=== PATIENT | male | born 1955 | race Caucasian/White ===

== ENCOUNTER 2019-11-28 17:34 | Inpatient (IN) | payer OTHER ==
[2019-11-28] VITALS (15 sets, daily range): BP systolic 87–175; BP diastolic 63–138
[~2019-11-28] VITALS: Ht 162.6 cm; Wt 62.6 kg
[2019-11-28 17:55] LABS: ABSOLUTE NEUTROPHILS 13.8 thou/uL (1.4-8.2); BASOPHILS 0.7 % (0.0-2.0); EOSINOPHILS 0.1 % (0.0-3.0); HEMATOCRIT 48.8 % (42.0-52.0); HEMOGLOBIN 16.4 gm/dL (14.0-18.0); LYMPHOCYTES 15.3 % (24.0-44.0); MCH 30.4 pg (26.0-34.0); MCHC 33.7 g/dL (28.0-37.0); MCV 90.3 fL (80.0-100.0); MONOCYTES 2.8 % (1.0-8.0); PLATELET COUNT 278 thou/uL (150-400); POLYS 81.1 % (36.0-66.0); RDW 13.7 % (10.5-14.5)
[2019-11-28 18:05] LABS: CALCIUM 8.4 mg/dL (8.5-10.1); CREATININE 1.2 mg/dL (0.7-1.3); POTASSIUM 4.3 mmol/L (3.5-5.1)
[2019-11-28 18:14] LABS: BE(vivo) -8.9 mmol/L (-2 to +3); HCO3 15.7 mmol/L (22.0-26.0); PCO2 31.6 mmHg (35.0-45.0); PO2 78.8 mmHg (80.0-100.0); pH 7.313 (7.360-7.450); sO2 94.8 % (92.0-98.0)
[2019-11-28 18:16] LABS: ALBUMIN 3.7 g/dL (3.4-5.0); TOTAL BILIRUBIN 1.3 mg/dL (0.2-1.0); TOTAL PROTEIN 7.2 g/dL (6.4-8.2)
[2019-11-28 18:20] LABS: TROPONIN-I 5.73 ng/mL (<0.06)
[2019-11-28 18:28] LABS: APTT 21.4 Seconds (24.5-32.8); INR 1.1; PROTIME 11.3 Seconds (9.3-11.4)
[2019-11-28 19:19] LABS: ALBUMIN 3.7 g/dL (3.4-5.0); TOTAL PROTEIN 7.2 g/dL (6.4-8.2)
[2019-11-28 19:26] LABS: URINE BILIRUBIN NEGATIVE (Negative); URINE BLOOD NEGATIVE (Negative); URINE CLARITY CLEAR; URINE COLOR YELLOW; URINE GLUCOSE-RANDOM* NEGATIVE (Negative); URINE KETONES NEGATIVE (Negative); URINE LEUKOCYTES-REFLEX NEGATIVE (Negative); URINE NITRITE-REFLEX NEGATIVE (Negative); URINE PROTEIN (DIPSTICK) NEGATIVE (Negative); URINE SPECIFIC GRAVITY 1.025 (1.005-1.035); URINE UROBILINOGEN 0.2 E.U./dl (0.2-1.0)
[2019-11-28 19:42] LABS: TSH 1.871 uIU/mL (0.358-3.740)
[2019-11-28 20:52] LABS: CHOLESTEROL 247 mg/dL (<200); HDL CHOLESTEROL 43 mg/dL (>40); LDL CHOLESTEROL 179 mg/dL (<100); TC:HDL 5.7 Ratio (Not establshd); TRIGLYCERIDE 128 mg/dL (<150); VLDL 26 mg/dL (<40)
--- NOTE | 2019-11-28 20:55 | NUR ---
PT ARRIVED TO ICU FROM [facility]IM[facility] NURSERY WORKER INTUBATED AND SEDATED WITH PROPOFOL GTT. PT WAS ASSESSED PER ICU PROTOCOL. ATTACHED TO ICU MONITOR. TWO RN'S VERIFIED RIGHT GROIN SITE WITH MYNX CLOSURE WAS WITHOUT HEMATOMA. DRESSING C/D/I. SARA BENNETT CALLED AND UPDATED. DR. GAUTHIER CALLED WITH PULMONARY CONSULT. CXR ORDERED TO VERIFY ETT PLACEMENT. RADIOLOGY RECOMMENDS PULLING ETT BACK 1-[address] GAUTHIER NOTIFIED OF XRAY READINGS. PER DR. GAUTHIER OKAT TO PULL BACK ETT 1-2CM. RT EMMA NOTIFIED. RT PULLED BACK ETT FROM 27CM AT THE LIPS TO 25CM.
[2019-11-28 20:58] LABS: SERUM ASSESSMENT Clear
--- NOTE | 2019-11-28 21:10 | CATHLAB ---
[facility] [place] [address] [place] [address] INVASIVE PROCEDURE REPORT Name: MARY VIVAS Room #: 240-P ADM IN M.R.#: [id number] Admission: 11/28/19 Attend Phys: Kavin Colmenares MD Discharge: Date of : 55 Report #: [id number] THIS REPORT FOR: cc: FAM - No family physician/PCP FAM - No family physician/PCP Callum Velez MD [facility] ~ APPROVED REPORT Study performed: 11/28/2019 18:53:55 Patient Details Patient Status: ED Room #: The patient is a 63 year-old male Event Personnel Callum Velez Cherry Pitter, Radha Swan RN, Tory Damon RTR, PANAMA HAT SMEARER Monitor, Yadiel Jones RTR Scrub Procedures Performed Art Access - R femoral artery* Left Heart Cath w/or w/o Coronaries [id number] [facility] GENA Revasc AMI Total/Sub Single RCA C[address] w/wo Plasty Single CIRC [id number] Hemostasis w/ Mynx Indication Chest pain Procedure Narrative The patient was brought emergently to the Cardiac Catheterization Laboratory and was prepped and draped in a sterile manner. The Right Groin^ was infiltrated with 1% Lidocaine subcutaneous anesthesia. A PINNACLE 6FR Sheath #[id number] sheath was inserted into the RFA^. Coronary angiography was performed using coronary diagnostic catheters. The right coronary system was accessed and visualized with a JR4 catheter. The left coronary system was accessed and visualized with a JL4 catheter. The left ventricle was accessed and visualized with a angled pigtail catheter. Left ventricular/Aortic Valve gradient assessed via catheter pullback. Left ventriculogram was performed in 30 degree projection. Closure device was deployed with a 6 Fr MYNXGRIP 6/7F #[id number]. The patient tolerated the procedure well and there were no complications associated with the procedure. There was no hematoma. There was delay in the procedure due to requirement for intubation in the emergency department. When he arrived in the [facility] [address] [place] [address] INVASIVE PROCEDURE REPORT Name: MARY VIVAS Room #: 240-P [facility] IN .R.#: [id number] Admission: 11/28/19 Attend Phys: Kavin Colmenares, Discharge: Date of : 55 Report #: [id number] Dial Polisher there was a leak in the ET tube balloon necessitating exchanged out of the endotracheal tube. Intraoperative Conscious Sedation Sedation start time: 20:29 Case end Time: 20:45 Fentanyl 100 mcg Versed 1 mg Fluoro Time: 9.59 minutes Dose: DAP 09434.70 cGycm2 1561 mGy Contrast Type and Amount: Visipaque 295 ml Coronary Angiography The patient's coronary anatomy is right dominant. Diagnostic Cath Left Main Normal left main LAD The LAD appeared to be chronically occluded at or near its origin Circumflex The circumflex was comprised of a small proximal first marginal branch and much larger second marginal branch The proximal circumflex exhibited an 80% stenosis after the origin of OM1. OM1 Small OM1 with mild plaquing OM2 Minimal distal plaquing and a large trifurcating OM1 Right Coronary The right coronary was dominant with a critical 99% distal stenosis with HERMILO I flow R PDA Moderately large posterior descending with mild plaquing RPLV Large posterior lateral branch with mild plaquing Left Ventriculography The left ventricle is moderately dilated in size with abnormal contractility. The left ventricular ejection fraction is estimated to be 20-25%. Left ventricular wall motion abnormalities are present. There is 2+ mitral insufficiency. Severe global hypokinesis. Anterior wall and apex were severely dysfunctional. The inferior base was akinetic Hemodynamics The aortic pressure is 135/64 mmHg with a mean of 91 mmHg. The left ventricular pressure is 118/22 mmHg with a mean of mmHg. The left ventricular end diastolic pressure is 41 mmHg. PCI Technique Lesion Anticoagulation was achieved with Heparin, Integrilin. Patient was [facility] [address] [place] [address] INVASIVE PROCEDURE REPORT Name: MARY VIVAS Room #: 240-P ADM IN M.R.#: [id number] Admission: 11/28/19 Attend Phys: Kavin Colmenares, Discharge: Date of : 55 Report #: [id number] preloaded with Plavix. Percutaneous coronary intervention was performed on the mistal right coronary artery. The lesion stenosis prior to intervention was 99% with HERMILO 1 flow. A VISTA 6FR JR 4 #[id number] Guide Catheter was used to engage the ostium. A Luge Wire .014 x 182CM #[id number] Interventional Guidewire was used to cross the lesion. BALLOON DILATION A Balloon catheter Euphora RX 3.0 x 12 #[id number] was inserted and inflated up to 8.00atm for 18seconds. Additional Inflation: 8.00atm for 16seconds. STENT DEPLOYMENT A drug-eluting stent RESOLUTE VICK RX 4.0 X 22 #[id number] was inserted and inflated up to 16.00atm for 20seconds. POST STENT DEPLOYMENT BALLOON DILATION A Balloon catheter TREK NC RX 4.0 X 12 #[id number] was inserted and inflated up to 16.00atm for 15seconds. Additional Inflation: 18.00atm for 18seconds. Final angiography reveals 0 % stenosis with HERMILO 3 flow. PCI Technique Lesion 2 Percutaneous Coronary Intervention was performed on the proximal circumflex artery segment. The lesion stenosis prior to intervention was 85% with HERMILO 3 flow. A LAUNCHER 6FR JL4 #[id number] Guide Catheter was used to engage the ostium. A Luge Wire .014 x 182CM #[id number] Interventional Guidewire was used to cross the lesion. Balloon Dilation A Balloon catheter Euphora RX 3.0 x 12 #[id number] was inserted and inflated up to 8.00atm for 19seconds. Stent Deployment A drug-eluting stent RESOLUTE VICK RX 3.0 X 18 #[id number] was inserted and inflated up to 12.00atm for 25seconds. Post Stent Deployment Balloon Dilation A Balloon catheter Euphora NC RX 3.0 x 12 #[id number] was inserted and inflated up to 20.00atm for 22seconds. Additional Inflation: 20.00atm for 24seconds. Final angiography reveals 0 % stenosis with HERMILO 3 flow. [facility] [address] [place] [address] INVASIVE PROCEDURE REPORT Name: MARY VIVAS Room #: 240-P ADM IN M.R.#: [id number] Admission: 11/28/19 Attend Phys: Kavin Colmenares, Discharge: Date of : 55 Report #: [id number] Conclusion 1. Severe left ventricular dysfunction. Ejection fraction 20-25% 2. Cardiogenic shock 3. Normal left main 4. Occlusion of the proximal LAD, chronic appearance 5. Severe proximal circumflex disease stented with a 3.0 x 18 mm Resolute stent 6. Dominant right coronary with critical 99% distal stenosis treated with a 4.0 x 22 mm Resolute stent <ELECTRONICALLY SIGNED> By: Callum Velez MD, [facility] 11/28/192108 08 08 Callum Velez MD, FAC /INF
[2019-11-28 21:12] LABS: BE(vivo) -4.3 mmol/L (-2 to +3); HCO3 20.9 mmol/L (22.0-26.0); PCO2 39.2 mmHg (35.0-45.0); PO2 94.7 mmHg (80.0-100.0); pH 7.345 (7.360-7.450); sO2 96.9 % (92.0-98.0)
[2019-11-29] VITALS (97 sets, daily range): BP systolic 76–108; BP diastolic 47–67
--- NOTE | 2019-11-29 00:53 | NUR ---
PT HAD 17 BEAT RUN OF V TACH. PT BLOOD PRESSURE 76/47. DR. TRIPATHI NOTIFIED. ORDERS OBTAINED TO RESTART DOPAMINE GTT. STAT BMP ORDERED. WILL FOLLOW ELECTROLYE PROTCOL. DR. TRIPATHI INFORMED THIS RN THAT THERE IS NO NEED TO CALL FOR RUNS OF V TACH UNLESS SUSTAINED.
[2019-11-29 01:57] LABS: HEMATOCRIT 49.2 % (42.0-52.0); HEMOGLOBIN 16.6 gm/dL (14.0-18.0); MCH 30.2 pg (26.0-34.0); MCHC 33.7 g/dL (28.0-37.0); MCV 89.5 fL (80.0-100.0); RBC 5.5 mil/uL (4.50-6.00); RDW 14.1 % (10.5-14.5); WBC 15.2 thou/uL (4.0-11.0)
[2019-11-29 02:07] LABS: CALCIUM 7.8 mg/dL (8.5-10.1); CREATININE 1.1 mg/dL (0.7-1.3); MAGNESIUM 1.9 mg/dL (1.8-2.4); POTASSIUM 4.5 mmol/L (3.5-5.1)
--- NOTE | 2019-11-29 02:24 | NUR ---
PT HAS A CRITICAL TROPONIN OF 107.12, PER DR. MEDEL ORDERS THE CRITICAL VALUE WAS NOT CALLED TO CARDIOLOGY.
--- NOTE | 2019-11-29 08:27 | EKG ---
[facility] [place] [address] [address] [place] [address] ELECTROCARDIOGRAM REPORT Name: MARY VIVAS Room #: 240-P ADM IN M.R.#: [id number] Admission: 11/28/19 Attend Phys: Kavin Colmenares MD Discharge: Date of : 55 Report #: [id number] THIS REPORT FOR: cc: FAM - No family physician/PCP FAM - No family physician/PCP Callum Velez MD [facility] THIS REPORT FOR: //name// [facility] ED Test Date: 2019-11-28 Test Time: 17:39:11 Pat Name: MARY VIVAS Department: Room: 240 Gender: M Administrative Support Clerk: JUS : 1955 Requested By: Shivam Sylvester Order Number: [id number] MD: Callum Velez Measurements Intervals [place] Rate: 89 P: 62 IA: 144 QRS: 67 QRSD: 97 T: 95 QT: 352 QTc: 429 Interpretive Statements Sinus rhythm Inferior infarct, possibly acute Anteroseptal infarct, old No previous ECG available for comparison Electronically Signed On 11-29-2019 8:27:49 CDT by Callum Velez [email or web address] <ELECTRONICALLY SIGNED> By: Callum Velez MD, FACC 11/29/19 0827 1739 1739 Callum Velez MD, [facility] /EPI
--- NOTE | 2019-11-29 08:30 | EKG ---
[facility] [place] [address] ELECTROCARDIOGRAM REPORT Name: MARY VIVAS Room #: 240-P ADM IN M.R.#: [id number] Admission: 11/28/19 Attend Phys: Kavin Colmenares MD Discharge: Date of : 55 Report #: [id number] THIS REPORT FOR: cc: SHANDRA - No family physician/PCP FAM - No family physician/PCP Callum Velez MD [facility] ~ THIS REPORT FOR: //name// [facility] ED Test Date: 2019-11-28 Test Time: 18:15:02 Pat Name: MARY VIVAS Department: Room: 240 Gender: M Director Community Organization: esheets : 1955 Requested By: Cristian Menendez Order Number: [id number] MD: Callum Velez Measurements Intervals [place] Rate: 90 P: 64 AK: 137 QRS: 55 QRSD: 104 T: 92 QT: 382 QTc: 468 Interpretive Statements Sinus rhythm Multiple ventricular premature complexes LAE, consider biatrial enlargement Anteroseptal infarct, age indeterminate No previous ECG available for comparison Electronically Signed On 11-29-2019 8:29:46 CDT by Callum Velez [email or web address] <ELECTRONICALLY SIGNED> By: Callum Velez MD, [facility] 11/29/19 0829 1815 1815 Callum Velez MD, [facility] /EPI
--- NOTE | 2019-11-29 08:34 | EKG ---
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: ASAD : 1955 Requested By: Callum Velez Order Number: [id number] MD: Callum Velez Measurements Intervals [place] Rate: 80 P: 20 MA: 132 QRS: 41 QRSD: 92 T: 98 QT: 405 QTc: 468 Interpretive Statements Sinus rhythm Paired ventricular premature complexes Anterior infarct, age indeterminate Compared to ECG 11/28/2019 18:15:02 No significant changes Electronically Signed On 11-29-2019 8:34:08 CDT by Callum Velez [email or web address] <ELECTRONICALLY SIGNED> By: Callum Velez MD, [facility] 11/29/1934 19 19 Callum Velez MD, [facility] /EPI
--- NOTE | 2019-11-29 08:40 | EKG ---
[facility] [place] [address] [address] ELECTROCARDIOGRAM REPORT Name: MARY VIVAS Room #: 240-P ADM IN M.R.#: [id number] Admission: 11/28/19 Attend Phys: Kavin Colmenares MD Discharge: Date of : 55 Report #: [id number] THIS REPORT FOR: cc: SHANDRA - No family physician/PCP SHANDRA - No family physician/PCP Callum Velez MD [facility] ~ THIS REPORT FOR: //name// [facility] Test Date: 2019-11-29 Test Time: 08:12:26 Pat Name: MARY VIVAS Department: Room: 240 P Gender: M Negative Turner: AVERY : 1955 Requested By: Callum Velez Order Number: [id number] MD: Callum Velez Measurements Intervals [place] Rate: 93 P: 56 CT: 135 QRS: -10 QRSD: 83 T: 105 QT: 327 QTc: 407 Interpretive Statements Sinus rhythm Anteroseptal infarct, age indeterminate Compared to ECG 11/28/2019 18:15:02 Ventricular premature complex(es) no longer present Electronically Signed On 11-29-2019 8:40:02 CDT by Callum Velez [email or web address] <ELECTRONICALLY SIGNED> By: Callum Velez MD, [facility] 11/29/19839 1 1 Callum Velez MD, [facility] /EPI
--- NOTE | 2019-11-29 12:38 | 2DMMODE ---
[facility] [address] [place] [address] 2 D/M-MODE ECHOCARDIOGRAM Name: MARY VIVAS Room #: 240-P ADM IN M.R.#: [id number] Admission: 11/28/19 Attend Phys: Kavin Colmenares MD Discharge: Date of : 55 Report #: [id number] THIS REPORT FOR: cc: SHANDRA - No family physician/PCP SHANDRA - No family physician/PCP Callum Velez MD [facility] ~ APPROVED REPORT Study performed: 11/29/2019 10:47:53 EXAM: Comprehensive 2D, Doppler, and color-flow Echocardiogram Patient Location: Bedside Room #: 240 Status: routine BSA: 1.74 HR: 88 bpm BP: 92/61 mmHg Rhythm: NSR Other Information Study Quality: Technically Difficult Technically limited study due to patient on ventilator, inability to position patient. Indications Non Q MD 2D Dimensions RVDd: 23.19 mm IVSd: 8.58 (7-11mm) LVOT Diam: 21.35 (18-24mm) LVDd: 53.94 mm PWd: 9.12 (7-11mm) Ascending Ao: 34.62 (22-36mm) LVDs: 47.79 (25-40mm) Aortic Root: 32.93 mm IVC: 18.00 mm Volumes Left Atrial Volume (Systole) Single Plane 4CH: 60.72 mL Single Plane 2CH: 54.41 mL LA ESV Index: 36.00 mL/m2 Aortic Valve AoV Peak Yonatan.: 1.04 m/s AO Peak Gr.: 4.30 mmHg LVOT Max P.96 mmHg LVOT Max V: 0.86 m/s [facility] [address] [place] [address] 2 D/M-MODE ECHOCARDIOGRAM Name: MARY VIVAS Room #: 240-P ADM IN .R.#: [id number] Admission: 11/28/19 Attend Phys: Kavin Colmenares, Discharge: Date of : 55 Report #: [id number] ASAD Vmax: 2.97 cm2 Mitral Valve E/A Ratio: 2.7 MV Decel. Time: 152.01 ms MV E Max Yonatan.: 1.14 m/s MV A Yonatan.: 0.42 m/s MV PHT: 44.08 ms IVRT: 55.36 ms Pulmonary Valve PV Peak Yonatan.: 0.86 m/s PV Peak Gr.: 3.02 mmHg Left Ventricle Left ventricle is at the upper limits of normal. There is normal left ventricular wall thickness. Left ventricular systolic function is severely decreased. LVEF 25%. Anterolateral wall akinesis. Global hypokinesis. 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 Right ventricle is mildly hypokinetic. Atria Left atrium is mildly dilated. The right atrium size is normal. Aortic Valve The aortic valve is mildly sclerotic, trileaflet No aortic regurgitation is present. There is no aortic valvular stenosis. Mitral Valve The mitral valve is normal in structure. Moderate mitral regurgitation. No evidence of mitral valve stenosis. Tricuspid Valve The tricuspid valve is normal in structure. There is no tricuspid valve regurgitation noted. Unable to assess PA pressure. Pulmonic Valve The pulmonary valve is normal in structure. Trace pulmonic regurgitation. Great Vessels [facility] [address] [place] [address] 2 D/M-MODE [facility]ARDIOGRAM [facility] #: [facility]-P [facility] IN M.R.#: [id number] Admission: 11/28/19 Attend Phys: Kavin Colmenares, Discharge: Date of : 55 Report #: [id number] The aortic root is normal in size. Aortic arch is not visualized. IVC is normal in size. Pericardium There is no pericardial effusion. <Conclusion> Left ventricular systolic function is severely decreased. LVEF 25%. Anterolateral wall akinesis. Global hypokinesis. 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 No aortic regurgitation or stenosis The mitral valve is normal in structure. Moderate mitral regurgitation. Unable to assess pulmonary artery pressure. There is no pericardial effusion. <ELECTRONICALLY SIGNED> By: Callum Velez MD, [facility] 11/29/19 1238 1238 1238 Callum Velez MD, FACC /INF
--- NOTE | 2019-11-29 15:27 | NUR ---
Pt ON HOLD FOR O.T. EVALUATION DUE TO CHANGE IN STATUS WITH EXTUBATION. ONCE Pt IS EXTUBATED, NEW ORDERS ARE NEEDED IF APPROPRIATE.
--- NOTE | 2019-11-29 16:06 | NUR ---
INITIAL ASSESSMENT: SW reviewed chart. Pt was admitted from home due to chest pain/shortness of air. Pt went to the [facility] emergently yesterday. Pt is intubated an in ICU. No contact info listed for pt. Per ER report, pt has a brother. Pt listed as patient pay. SW to follow up with pt when he is able to communicate and make his needs known. SW is following to assist as needed with discharge planning.
--- NOTE | 2019-11-29 18:29 | NUR ---
PATIENT REMAINED INTUBATED AND SEDATED WITHOUT ANY DIFFICULTY FOR MOST OF THE DAY. AT 1600 PATIENT WAS ABLE TO BEND NECK DOWN AND SELF EXTUBATE. PATIENT WAS BAGGED, RT NOTIFIED, AND DR GAUTHIER CONTACTED. DR GAUTHIER SAID TO PUT PATIENT ON BIPAP AND SEE HOW HE DOES. PATIENT IS STILL CURRENTLY ON BIPAP AND TOLERATING IT WELL. PATIENT IS NOW FOLLOWING COMMANDS. RESTRAINTS LIFTED PER POLICY.RIGHT GROIN SITE REMAINS INTACT WITH NO HEMATOMA. NO FURTHER CONCERNS AT THIS TIME. WILL CONTINUE TO MONITOR AND CARE PER PLAN OF CARE.
[2019-11-29 20:21] LABS: BE(vivo) -1.7 mmol/L (-2 to +3); HCO3 21.5 mmol/L (22.0-26.0); PCO2 32.7 mmHg (35.0-45.0); PO2 229.9 mmHg (80.0-100.0); pH 7.436 (7.360-7.450); sO2 99.5 % (92.0-98.0)
[2019-11-30] VITALS (64 sets, daily range): BP systolic 86–113; BP diastolic 48–75
--- NOTE | 2019-11-30 02:32 | NUR ---
Report to Blayne FOWLER. pt 2 x negative covid test. moved from icu 240 to icu 246.
[2019-11-30 04:19] LABS: HEMATOCRIT 40.3 % (42.0-52.0); MCH 30.3 pg (26.0-34.0); MCHC 34.3 g/dL (28.0-37.0); MCV 88.2 fL (80.0-100.0); RBC 4.56 mil/uL (4.50-6.00); RDW 13.7 % (10.5-14.5); WBC 12.8 thou/uL (4.0-11.0)
--- NOTE | 2019-11-30 04:44 | NUR ---
ASSUMED PT CARE AT 0220AM FROM BLANCA FOWLER. PT A&0X4. VSS WITH SLIGHT TACHYCARDIA IN 110s. AROUND O320. PT COMPLAINED CHEST PAIN WHILE THIS RN WAS ON BREAK. EKG GOTTEN BY ANOTHER NURSE AND MORPHINE GIVEN TO RELEIVE PAIN. PT ON DOPAMINE AT 10 FOR PRESSURE SUPPORT. MOST RECENT BP IS 88/50. PT IS STABLE. WILL CONTINUE TO CLOSELY MONITOR
[2019-11-30 04:55] LABS: CALCIUM 7.9 mg/dL (8.5-10.1); POTASSIUM 3.3 mmol/L (3.5-5.1)
[2019-11-30 05:25] LABS: HEMOGLOBIN 13.8 gm/dL (14.0-18.0)
--- NOTE | 2019-11-30 08:20 | EKG ---
[facility] [place] [address] [place] [address] ELECTROCARDIOGRAM REPORT Name: MARY VIVAS Room #: 246-P ADM IN M.R.#: [id number] Admission: 11/28/19 Attend Phys: Kavin Colmenares MD Discharge: Date of : 55 Report #: [id number] THIS REPORT FOR: cc: SHANDRA - Yudy family physician/PCP SHANDRA - Yudy family physician/PCP Callum Velez MD [facility] THIS REPORT FOR: //name// [facility] Test Date: 2019-11-30 Test Time: 07:58:19 Pat Name: MARY VIVAS Department: Room: 246 Gender: M Lan Administrator: AVERY : 1955 Requested By: Callum Velez Order Number: [id number] MD: Callum Velez Measurements Intervals [place] Rate: 103 P: 57 CA: 138 QRS: 22 QRSD: 85 T: 120 QT: 338 QTc: 443 Interpretive Statements Sinus tachycardia Left atrial enlargement Nonspecific ST and T wave abnormality compared to ECG 11/29/2019 08:12:26 No significant change was found Electronically Signed On 11-30-2019 8:20:11 CDT by Callum Velez [email or web address] <ELECTRONICALLY SIGNED> By: Callum Velez MD, [facility] 11/30/19 0820 0758 0758 Callum Velez MD, [facility] /EPI
--- NOTE | 2019-11-30 10:06 | NUR ---
cm spoke with bedside nurse, pt soa and on high-flow o2. unable to visit with him. bedside nurse going to see if can get contact name and number for madelaine. will cont following as needed for dc needs.
[2019-11-30 12:59] LABS: BE(vivo) -1.8 mmol/L (-2 to +3); HCO3 21.7 mmol/L (22.0-26.0); PCO2 33.3 mmHg (35.0-45.0); PO2 58.6 mmHg (80.0-100.0); pH 7.431 (7.360-7.450); sO2 91.4 % (92.0-98.0)
--- NOTE | 2019-11-30 16:25 | EKG ---
[facility] [place] [address] [address] ELECTROCARDIOGRAM REPORT Name: MARY VIVAS Room #: 246-P ADM IN M.R.#: [id number] Admission: 11/28/19 Attend Phys: Kavin Colmenares MD Discharge: Date of : 55 Report #: [id number] THIS REPORT FOR: cc: FAM - No family physician/PCP FAM - No family physician/PCP Ty Nguyễn MD ~ THIS REPORT FOR: //name// [facility] Test Date: 2019-11-30 Test Time: 03:26:59 Pat Name: MARY VIVAS Department: Room: 246 P Gender: M Rabbit Fancier: Gurmeet Pearce : 1955 Requested By: Dot Carson Order Number: [id number] MD: Ty Nguyễn Measurements Intervals [place] Rate: 107 P: 68 DE: 141 QRS: 35 QRSD: 87 T: 9 QT: 334 QTc: 446 Interpretive Statements Sinus tachycardia Biatrial enlargement Low voltage in the limb leads Compared to ECG 11/29/2019 08:12:26 No Q waves or poor R wave progression noted in the anterior precordial leads No significant changes Electronically Signed On 11-30-2019 16:25:21 CDT by Ty Nguyễn [email or web address] <ELECTRONICALLY SIGNED> By: Ty Nguyễn MD 11/30/19 1625 0326 0326 Ty Nguyễn MD /EPI
--- NOTE | 2019-11-30 18:18 | NUR ---
ASSUMED CARE PT SHIFT CHANGE. ASSESSMENTS CHARTED.MEDS GIVEN PER MAY. PT ALERT AND ORIENTED.VSS. DOPAMINE GTT CONTINUES. PT BECAME TACHYPNEIC AND TACHYCARDIC THIS SHIFT WITH DECREASE IN O2 SATS. PHYSICIANS NOTIFIED. ORDERS RECEIVED. PT PUT ON HIGH FLOW NC WITH NO IMPROVEMENT. PT NOW ON BIPAP 50% TOLERATING WELL. URINE OUTPUT ADEQUATE. PT WORKED WITH SPEECH THERAPY THIS SHIFT TOLERATING WELL. APPETITE LESS THAN ADEQUATE. PT CURRENTLY SLEEPING WITH BIPAP ON, O2 SATS WNL. WILL CONTINUE TO MONITOR. WILL PASS ON REPORT TO FREDDY FOWLER.
--- NOTE | 2019-11-30 20:22 | NUR ---
This RN received report from JANETH Medel and assumed care. Patient alert and oriented and remains calm at this time. Patient complains of left chest pain at a 3 and that it is unchanged from his stay here. Will continue to monitor.
[2019-12-01] VITALS (53 sets, daily range): BP systolic 81–119; BP diastolic 51–79
[2019-12-01 05:58] LABS: HEMATOCRIT 37.7 % (42.0-52.0); HEMOGLOBIN 12.8 gm/dL (14.0-18.0); MCH 30.3 pg (26.0-34.0); MCHC 34.1 g/dL (28.0-37.0); RBC 4.24 mil/uL (4.50-6.00); RDW 13.7 % (10.5-14.5); WBC 11.4 thou/uL (4.0-11.0)
--- NOTE | 2019-12-01 06:24 | NUR ---
Pt weaned off Dopamine gtt and is maintaining adequate blood pressures. Patient still reporting same tiny constant chest pain. Pt remains afebrile, sinus rhythm and there are no signs of hematomas over his inssertion site on his right groin. Pt slept well throughout the night.
[2019-12-01 06:26] LABS: CALCIUM 8.6 mg/dL (8.5-10.1); MAGNESIUM 2.2 mg/dL (1.8-2.4); POTASSIUM 3.8 mmol/L (3.5-5.1)
--- NOTE | 2019-12-01 08:12 | HC ---
[facility] [place] [address] [address] CONSULTATION Name: MARY VIVAS Room #: 246-P ADM IN M.R.#: [id number] Admission: 11/28/19 Attend Phys: Kavin Colmenares MD Discharge: Date of : 55 Report #: [id number] THIS REPORT FOR: cc: SHANDRA - Yudy family physician/PCP SHANDRA - Yudy family physician/PCP Callum Velez MD LOCATED WITHIN [facility] ~ CC: [facility] physician/PCP Kavin Colmenares DATE OF SERVICE: 11/28/2019 REASON FOR CONSULTATION: Chest pain, shortness of breath. HISTORY OF PRESENT ILLNESS: The patient is a 63-year-old [place]ian gentleman with a limited past medical history. He reports a 4-day history of increasing shortness of breath with chest pain starting earlier today. He had trouble talking in full sentences when he called his brother to describe his symptoms. The pain also radiated up into his jaw. He presented to the Emergency Department where he had saturations in the 80s. He was hypotensive with a blood pressure of 71/53. Presenting EKG demonstrated septal Q-waves and poor septal R-wave progression and very subtle 0.5 mm of repolarization abnormality in the inferior leads. He denies past cardiac history, namely no history of heart attack, heart failure, palpitations, near syncope or syncope. ALLERGIES: There are no known drug allergies. MEDICATIONS: He takes no medicines on a regular basis. PAST MEDICAL HISTORY: Medical records have been reviewed. There were no significant illnesses, hospitalizations, or surgeries. He did have an injury to his left hand many years ago. SOCIAL HISTORY: He is a nonsmoker. Not . FAMILY HISTORY: Unremarkable for premature coronary artery disease. REVIEW OF SYSTEMS: All systems negative except as that noted above. PHYSICAL EXAMINATION: GENERAL: Reveals a diaphoretic, dyspneic gentleman in acute distress. VITAL SIGNS: Blood pressure is 120/70, heart rate 97 and regular, respirations of 45. HEENT: There are neither xanthelasma, subcutaneous xanthomata, oral mucosal or digital cyanosis or kyphoscoliosis present. CHEST: Reveals bibasilar rales, expiratory wheezes. CARDIAC: Distant and audible regular rate and rhythm with almost inaudible S1, [facility] [address] [place] [address] CONSULTATION Name: MARY VIVAS Room #: 246-P ADM IN M.R.#: [id number] Admission: 11/28/19 Attend Phys: Kavin Colmenares MD Discharge: Date of : 55 Report #: [id number] S2. ABDOMEN: Soft and nontender. EXTREMITIES: Without cyanosis, clubbing or edema. Radial pulses are 2+. NEUROLOGIC: He is alert with a nonfocal exam. LABORATORY DATA: Sodium is 135, potassium 4.3, creatinine 1.2, glucose 240. Troponin 5.73. White count 17,000, hemoglobin 16, hematocrit 48, platelet count 278. Chest x-ray demonstrates mixed interstitial and alveolar infiltrates. IMPRESSION: 1. Non-Q-wave myocardial infarction, cardiogenic shock. 2. Acute hypoxemic respiratory failure. Acute systolic heart failure 3. Elevated blood sugar without prior diagnosis of diabetes. RECOMMENDATIONS: 1. Therapy with aspirin, heparin. 2. Intubation prior to coronary angiography. This was discussed with the Emergency Room physician. 3. Urgent angiography. The procedure was discussed in detail including its associated risks and alternatives. After a thorough discussion of the procedure, its risks and alternatives and his questions answered, he is agreeable to proceeding. Further thoughts and plans will be forthcoming based on this evaluation. 80min cc time. Coordinating care with ED, staff, direct patient care before and after angiogram. <ELECTRONICALLY SIGNED> By: Callum Velez MD, FACC 12/01/19811 1853 192 Callum Velez MD, FACC /nt
--- NOTE | 2019-12-01 10:06 | NUR ---
cm followed up with bedside nurse to see if any bedside staff yesterday were able to visit with madelaine and get his brother contacted info he was asking to speak to his brother and have no contacted for him and do not have any insurance listed for madelaine. per bedside nurse pt just intubated. will cont following as needed for dc needs. cm called zr that is listed for contact, did not leave message rt says wont check voice message so text. cm did not text this [phone]. will cont following as needed for dc needs.
[2019-12-01 10:50] LABS: APTT 32.9 Seconds (24.5-32.8); FIBRINOGEN 557.7 mg/dL (210-360); INR 1.2; PROTIME 11.9 Seconds (9.3-11.4)
[2019-12-01 10:53] LABS: BE(vivo) -2.9 mmol/L (-2 to +3); HCO3 20.6 mmol/L (22.0-26.0); PCO2 32.3 mmHg (35.0-45.0); PO2 184.7 mmHg (80.0-100.0); pH 7.422 (7.360-7.450); sO2 99.3 % (92.0-98.0)
[2019-12-01 11:02] LABS: D-DIMER 10.86 ug/mLFEU (0.19-0.50)
--- NOTE | 2019-12-01 12:25 | EKG ---
[facility] [place] [address] [place] [address] ELECTROCARDIOGRAM REPORT Name: MARY VIVAS Room #: 246-P ADM IN M.R.#: [id number] Admission: 11/28/19 Attend Phys: Kavin Colmenares MD Discharge: Date of : 55 Report #: [id number] THIS REPORT FOR: cc: FAM - No family physician/PCP FAM - No family physician/PCP Ty Nguyễn MD ~ THIS REPORT FOR: //name// [facility] Test Date: 2019-12-01 Test Time: 09:47:27 Pat Name: MARY VIVAS Department: Room: 246 P Gender: M Fruit Culler: AVERY : 1955 Requested By: Carson Spears Order Number: [id number] MD: Ty Nguyễn Measurements Intervals [place] Rate: 92 P: 64 [place]: 130 QRS: 55 QRSD: 94 T: 95 QT: 367 QTc: 455 Interpretive Statements Sinus rhythm Ventricular premature complex Left atrial enlargement Low voltage, extremity leads Nonspecific S/T abnormalities Compared to ECG 11/30/2019 07:58:19 Ventricular premature complex(es) now present Electronically Signed On 12-01-2019 12:25:13 CDT by Ty Nguyễn [email or web address] <ELECTRONICALLY SIGNED> By: yT Nguyễn MD 12/01/19 1225 0947 Ty Nguyễn MD /EPI
--- NOTE | 2019-12-01 12:38 | NUR ---
PT EVAL ATTEMPTED. Pt HAS HAD A DECLINE IN MEDICAL STATUS INCLUDING VENTILATION. REQUEST NEW ORDERS FOR PT. ONCE APPROPRIATE, WILL ATTEMP PT EVALUATION.
--- NOTE | 2019-12-01 17:17 | NUR ---
1000-ASSISTED EARLIER W EMERGENT INTUBATION,CENTRAL LINE & KASH PLACEMENT.PT W SUDDEN ONSET SEVERE RESP DISTRESS,PROFUSELY DIAPHORETIC,MOTTLED EXTREM'S & NOT MAINTAINING SATS DESPITE 100% BIPAP. IN & INTUBATED,PLACED LINES W/O DIFF. PROPOFOL,FENTANYL STARTED FOR VENT COMFORT & MANAGEMENT.--VW
--- NOTE | 2019-12-01 21:41 | NUR ---
This RN assumed care at 1900 this evening. Pt comfortably sedated and is currently at 50% FiO2. Pt on propofol and fentanyl gtt. During sedation vacation patient followed all commands, moved all extremities, and shook his head yes or no to questions. Continue to monitor.
[2019-12-02] VITALS (37 sets, daily range): BP systolic 78–115; BP diastolic 47–73
[2019-12-02 04:08] LABS: BE(vivo) 1.8 mmol/L (-2 to +3); HCO3 24.9 mmol/L (22.0-26.0); PCO2 34.4 mmHg (35.0-45.0); PO2 149.4 mmHg (80.0-100.0); pH 7.478 (7.360-7.450); sO2 99.1 % (92.0-98.0)
[2019-12-02 04:47] LABS: ABSOLUTE NEUTROPHILS 7.2 thou/uL (1.4-8.2); BASOPHILS 0.4 % (0.0-2.0); EOSINOPHILS 0.5 % (0.0-3.0); HEMATOCRIT 35.6 % (42.0-52.0); LYMPHOCYTES 15.4 % (24.0-44.0); MCHC 33.7 g/dL (28.0-37.0); MCV 89.2 fL (80.0-100.0); MONOCYTES 5.7 % (1.0-8.0); PLATELET COUNT 210 thou/uL (150-400); RBC 3.98 mil/uL (4.50-6.00); RDW 13.6 % (10.5-14.5); WBC 9.2 thou/uL (4.0-11.0)
[2019-12-02 05:07] LABS: ALBUMIN 2.3 g/dL (3.4-5.0); CALCIUM 8.3 mg/dL (8.5-10.1); CREATININE 1.1 mg/dL (0.7-1.3); MAGNESIUM 2.4 mg/dL (1.8-2.4); POTASSIUM 3.2 mmol/L (3.5-5.1); TOTAL BILIRUBIN 1.2 mg/dL (0.2-1.0); TOTAL PROTEIN 6.3 g/dL (6.4-8.2)
--- NOTE | 2019-12-02 06:27 | NUR ---
Pt remains on a fentanyl and propofol gtt for sedation and comfort. Patients potassium currently being replaced. Pressures on the softer side but MAP remains greater than 65, so I did not give scheduled dopamine gtt. Adequate urine output. FiO2 titrated down to 40%, patients ABG O2 on the higher side, will pass on to day shift. Highest temperature of the night was 100.6 F. This RN placed ice packs on the patient, removed blankets, and turned on the fan and patients temperature came down. Pt still requiring heavy monitoring and is therefore not progressing toward goals.
--- NOTE | 2019-12-02 09:04 | NUR ---
Received call this morning from pt's brother in [place]: Pj Valentino. Previous notes indicated pt had been asking for his brother. Brother requesting to have physicians call him for status report. Brother indicated he may try to come to . Spoke with Jane Brink from case management who confirmed that pt had been asking to speak to his brother. Dr Spears here for rounds and did call the brother with status report. Brothers name is Pj Valentino. His phone number is [phone]. Brother did have pt privacy code number. Pt unable to given verbal consent at this time.
--- NOTE | 2019-12-02 09:20 | NUR ---
ET tube advanced to 27 cm at lip by Remigio Llanos RT per order from Dr Spears. OG tube taped to the ET tube and is positioned at 56 cm at lip.
--- NOTE | 2019-12-02 11:14 | NUR ---
Recommend vital high protein, 1 carton, 5x per day. If pump becomes available, change to continuous at 45ml/hr goal while on propofol. Defer any fluid needs to physician as pt is diuresing.
--- NOTE | 2019-12-02 12:50 | EKG ---
[facility] [address] [address] ELECTROCARDIOGRAM REPORT Name: MARY VIVAS Room #: 246-P ADM IN M.R.#: [id number] Admission: 11/28/19 Attend Phys: Kavin Colmenares MD Discharge: Date of : 55 Report #: [id number] THIS REPORT FOR: cc: SHANDRA - Yudy family physician/PCP SHANDRA - Yudy family physician/PCP Bala Tian MD [facility] ~ THIS REPORT FOR: //name// [facility] Test Date: 2019-12-02 Test Time: 11:46:56 Pat Name: MARY VIVAS Department: Room: 246 P Gender: M Enrichment Specialist: AVERY : 1955 Requested By: Bala Tian Order Number: [id number] MD: Bala Tian Measurements Intervals [place] Rate: 65 P: -47 NC: 110 QRS: 26 QRSD: 85 T: -25 QT: 530 QTc: 552 Interpretive Statements Sinus or ectopic atrial rhythm Atrial premature complex Borderline short NC interval Low voltage, extremity leads J-Point elevation precordial leads Prolonged QT interval Compared to ECG 12/01/2019 09:47:27 Ectopic atrial rhythm now present Atrial premature complex(es) now present Prolonged QT interval now present Ventricular premature complex(es) no longer present Electronically Signed On 12-02-2019 12:50:17 CDT by Bala Tian [email or web address] <ELECTRONICALLY SIGNED> By: Bala Tian MD, [facility] 12/02/19 1250 1146 1146 Bala Tian MD, [facility] /EPI
--- NOTE | 2019-12-02 17:11 | NUR ---
SW reviewed chart and spoke with attending physician. Pt remains intubated and sedated. Pt's brother Pj Valentino ([phone]) has contacted pt's nurse and spoke with pastry wrapper earlier today. SW placed call and left voice message for Pj. Contact info for BROCK provided. BROCK is following to assist as needed with discharge planning.
--- NOTE | 2019-12-02 19:00 | NUR ---
Pt resting quietly. Continues with sedation while on ventilator. Cardiac rhythm stable. Blood pressure improved during coarse of the shift. No Dopamine required. Tube feedings started as bolus feeding until pump available for continuous feeding as ordered. Urine output is tapering down. Report given to RN's assuming care. Continue to support and work toward goals.
[2019-12-03] VITALS (11 sets, daily range): BP systolic 83–111; BP diastolic 53–72
[2019-12-03 05:08] LABS: HEMATOCRIT 34.9 % (42.0-52.0); HEMOGLOBIN 11.7 gm/dL (14.0-18.0); MCH 30.1 pg (26.0-34.0); MCHC 33.6 g/dL (28.0-37.0); MCV 89.7 fL (80.0-100.0); RBC 3.89 mil/uL (4.50-6.00); RDW 13.8 % (10.5-14.5); WBC 8.2 thou/uL (4.0-11.0)
[2019-12-03 05:11] LABS: CALCIUM 8.3 mg/dL (8.5-10.1); POTASSIUM 3.7 mmol/L (3.5-5.1)
--- NOTE | 2019-12-03 18:47 | NUR ---
ASSESSMENTS AND INTERVENTIONS DOCCUMENTED. NO MAJOR CHANGES THROUGH OUT SHIFT. PATIENT NOT TOLERATING CONTINUOUS TUBE FEEDING.ON HOLD FOR NOW. DR. ABRAHAN CHANDLER. NO NEW ORDERS. PATIENT IS NOT PROGRESSING TOWARDS GOALS AT THIS TIME EVIDENCE BY NOT DOING CPAP AND NOT TOLERATING TUBE FEEDING.
[2019-12-04] VITALS: BP 87/57
[2019-12-04 03:14] LABS: BASOPHILS 0.5 % (0.0-2.0); EOSINOPHILS 0.7 % (0.0-3.0); HEMATOCRIT 36.6 % (42.0-52.0); HEMOGLOBIN 12.4 gm/dL (14.0-18.0); MCH 30.2 pg (26.0-34.0); MCHC 33.9 g/dL (28.0-37.0); MCV 89.2 fL (80.0-100.0); MONOCYTES 7.5 % (1.0-8.0); PLATELET COUNT 270 thou/uL (150-400); POLYS 82.3 % (36.0-66.0); RBC 4.11 mil/uL (4.50-6.00); RDW 13.8 % (10.5-14.5); WBC 9.7 thou/uL (4.0-11.0)
[2019-12-04 03:24] LABS: ALBUMIN 2.3 g/dL (3.4-5.0); CALCIUM 8.3 mg/dL (8.5-10.1); POTASSIUM 3.8 mmol/L (3.5-5.1); TOTAL BILIRUBIN 0.7 mg/dL (0.2-1.0); TOTAL PROTEIN 6.6 g/dL (6.4-8.2)
[2019-12-04 04:00] VITALS: BP 93/55
--- NOTE | 2019-12-04 04:22 | NUR ---
PT OPENING EYES TO PAINFUL STIMULI. 120ML GASTRIC RESIDUAL REPORT, NONE AT 2100. TUBE FEEDING RESTARTED. PT'S NIECE CALLED, UPDATED ON PATIENT'S CONDITION, POC, AND QUESTIONS ANSWERED. NO ISSUES VOICED, STATES WILL VISIT. PT'S BROTHER ALSO CALLED, UPDATES GIVEN, WILL CALL BACK TO CHECK ON HIM TOMORROW.
[2019-12-04 05:10] LABS: BE(vivo) 5.2 mmol/L (-2 to +3); HCO3 25.6 mmol/L (22.0-26.0); PO2 70.1 mmHg (80.0-100.0); sO2 96.6 % (92.0-98.0)
[2019-12-04 05:12] LABS: pH 7.611 (7.360-7.450)
[2019-12-04 08:00] VITALS: BP 97/59
[2019-12-04 12:00] VITALS: BP 100/65
[2019-12-04 16:00] VITALS: BP 82/54
--- NOTE | 2019-12-04 17:01 | NUR ---
ASSUMED CARE @ 0700 12/04/19, PT ASSESSMENTS AND VSS COMPLETE PER ICU PROTOCOL. PT ENCOUNTERED ON PROPOFOL AND FENTANYL FOR VENT MANAGEMENT. NOW TRANSITIONING FROM PROPOFOL TO PRECEDEX FOR BETTER MANAGEMENT TO REACH GOAL OF A CPAP ATTEMPT. DR LI AND DR GAUTHIER AT BEDSIDE TO ROUND ORDERS RECIEVED. PT'S BS TRENDING UP, DR LI INFORMED, PT PLACED ON SLIDING SCALE. BROTHER JOSÉ JACOBS @ BEDSIDE FROM 1550 -1700, QUESTIONS ANSWERED AND HE ALSO REQUESTED ASK DOCTORS TO CALL HIM WITH AN UPDATE, WILL COMMUNICATE THIS TO THE MEDICAL TEAM.
[2019-12-04 20:00] VITALS: BP 98/65
[2019-12-05] VITALS (14 sets, daily range): BP systolic 81–102; BP diastolic 49–65
--- NOTE | 2019-12-05 03:28 | NUR ---
PT WAS VERY RESTLESS AT BEGINNING OF SHIFT. INCREASED SEDATION WITH PRECEDEX AND FENTANYL. PROPOFOL ALSO INFUSING FOR VENT MGT. PT HAS SINCE BEEN RESTING CALMLY IN THE BED, BUT DOES BECOME AGITATED AT TIMES WITH STIMULI. TOLERATING VENT WELL. REMAINS ON VENT WITH 40% FIO2. TF VIA OGT. SMALL TO MODERATE AMOUNT OF RESIDUALS. SURESH TO DD. UO 27-30ML/HR. BILATERAL WRIST RESTRAINTS IN PLACE PT TRIES TO PULL AT ETT WHEN HE IS AGITATED. FALL PRECAUTIONS IN PLACE. PROGRESSING SLOWLY TOWARD POC GOALS. WILL CONTINUE TO MONITOR.
[2019-12-05 04:53] LABS: BE(vivo) 2.6 mmol/L (-2 to +3); HCO3 25.1 mmol/L (22.0-26.0); PCO2 32.6 mmHg (35.0-45.0); PO2 79.9 mmHg (80.0-100.0); pH 7.505 (7.360-7.450); sO2 96.8 % (92.0-98.0)
[2019-12-05 05:15] LABS: ABSOLUTE NEUTROPHILS 8.6 thou/uL (1.4-8.2); BASOPHILS 0.4 % (0.0-2.0); EOSINOPHILS 0.3 % (0.0-3.0); HEMATOCRIT 36.2 % (42.0-52.0); LYMPHOCYTES 9.6 % (24.0-44.0); MCH 29.9 pg (26.0-34.0); MCHC 33.1 g/dL (28.0-37.0); MCV 90.3 fL (80.0-100.0); MONOCYTES 7.3 % (1.0-8.0); PLATELET COUNT 265 thou/uL (150-400); POLYS 82.4 % (36.0-66.0); RBC 4.01 mil/uL (4.50-6.00); WBC 10.5 thou/uL (4.0-11.0)
[2019-12-05 05:33] LABS: ALBUMIN 2.1 g/dL (3.4-5.0); CALCIUM 8.4 mg/dL (8.5-10.1); CREATININE 1.2 mg/dL (0.7-1.3); POTASSIUM 4.3 mmol/L (3.5-5.1); TOTAL BILIRUBIN 0.6 mg/dL (0.2-1.0); TOTAL PROTEIN 6.7 g/dL (6.4-8.2)
--- NOTE | 2019-12-05 10:31 | NUR ---
Recommend new goal rate of tube feed to 65ml/hr.
--- NOTE | 2019-12-05 10:59 | NUR ---
returned voice message from brother sidney # [phone] ' we don't talk on phone or take any calls on thursday. here few days. i called the rabbie right away.per sidney. education on dcp and transition of care, he stated he understood but will i was asking question if he has support her local, sidney said " why you need to know. i told him to live in [place] next to me. we have family all over the world. he lives alone, has good friend. he can drive and he works. not sure name where he works"/brother. cm spoke with bedside nurse to check his belonging to see if he has insurance card or work id. there only shannon, nothing locked up in security. madelaine remains intubated, tf for nutritional support as needed. unable to visit with him rt vent. sidney going to go by his place and look for insurance, work information per bedside nurse.
--- NOTE | 2019-12-05 19:30 | NUR ---
PT VERY SENSITIVE TO ANY DECREASE IN SEDATION. CONSISTENTLY WHEN SEDATION DECREASED TWICE DURING SHIFT, PT WITHIN A FEW MINUTES BEGAN THRASHING HIS HEAD BACK AND FORTH, BITING AND USING TONGUE TO ATTEMPT TO DISPLACE ETT, INTERMITTENTLY PULLING RESTRAINED AUDI HANDS TOWARD ETT, ATTEMPTING SIT UP MORE IN BED, THRASHING LEGS BACK AND FORTH. PT VERY ANXIOUS, UNABLE TO CALM WITH SUPPORT. SEDATION IS ONLY RELIEF AT THIS TIME TO KEEP ETT IN PLACE TILL PLANNED EXTUBATION.
--- NOTE | 2019-12-05 19:50 | NUR ---
RECEIVED PATIENT REPORT FROM CHARLY FOWLER. ASSUMED PATIENT CARE AT THIS TIME.
[2019-12-06] VITALS (50 sets, daily range): BP systolic 84–110; BP diastolic 50–65
[2019-12-06 04:50] LABS: HEMATOCRIT 33.7 % (42.0-52.0); HEMOGLOBIN 11.4 gm/dL (14.0-18.0); MCHC 33.7 g/dL (28.0-37.0); RBC 3.79 mil/uL (4.50-6.00); RDW 13.6 % (10.5-14.5); WBC 9.4 thou/uL (4.0-11.0)
[2019-12-06 05:00] LABS: CALCIUM 8.5 mg/dL (8.5-10.1); CREATININE 0.9 mg/dL (0.7-1.3)
--- NOTE | 2019-12-06 17:47 | NUR ---
ang spoke with bedside nurse to see if brother has visited today and if he found any insurance information at [facility]. per bedside nurse been here and say he will get well soon and we can ask him for the paperwork. will cont following as needed for dc needs. unable to visit with madelaine browne still intubated and tf for nutritional support.
--- NOTE | 2019-12-06 21:45 | NUR ---
2149- Care of patient handed over to another oncoming RN for continuation of care. Assessments and vital signs as documented.
[2019-12-07] VITALS: BP 89/57
[2019-12-07 04:00] VITALS: BP 93/55
[2019-12-07 05:14] LABS: BE(vivo) 3.9 mmol/L (-2 to +3); HCO3 27.9 mmol/L (22.0-26.0); PCO2 39.9 mmHg (35.0-45.0); PO2 81.2 mmHg (80.0-100.0); pH 7.463 (7.360-7.450); sO2 96.5 % (92.0-98.0)
[2019-12-07 05:26] LABS: ABSOLUTE NEUTROPHILS 7.1 thou/uL (1.4-8.2); BASOPHILS 0.6 % (0.0-2.0); EOSINOPHILS 0.6 % (0.0-3.0); HEMATOCRIT 34.2 % (42.0-52.0); HEMOGLOBIN 11.2 gm/dL (14.0-18.0); LYMPHOCYTES 11.6 % (24.0-44.0); MCH 29.5 pg (26.0-34.0); MCHC 32.7 g/dL (28.0-37.0); MCV 90.2 fL (80.0-100.0); MONOCYTES 10.2 % (1.0-8.0); PLATELET COUNT 266 thou/uL (150-400); RBC 3.79 mil/uL (4.50-6.00); WBC 9.2 thou/uL (4.0-11.0)
[2019-12-07 05:40] LABS: ALBUMIN 2.1 g/dL (3.4-5.0); CREATININE 1.1 mg/dL (0.7-1.3); POTASSIUM 4.3 mmol/L (3.5-5.1); TOTAL BILIRUBIN 0.4 mg/dL (0.2-1.0); TOTAL PROTEIN 6.3 g/dL (6.4-8.2)
--- NOTE | 2019-12-07 05:50 | NUR ---
Assumed pt care at 2129. Pt is sedated and intubated. No sign of distress notdin pt. Assessment completed and documented. Sceheduled meds administered to pt. Continue to monitor. No further needs at this time.
[2019-12-07 08:00] VITALS: BP 102/61
--- NOTE | 2019-12-07 11:36 | NUR ---
ON THE VENT LIGHTLY SEDATED, AWAKENS EASILY AND FOLLOWS SOME COMMANDS BUT GETS RESTLESS. VITALS STABLE. A-LINE RIGHT RADIAL. TOLERATING TUBEFEEDING PER OGT WITH MINIMAL RESIDUALS. SURESH WITH ADEQUATE OUTPUT.
[2019-12-07 12:00] VITALS: BP 89/58
--- NOTE | 2019-12-07 14:59 | NUR ---
PATIENT'S BROTHER CAME IN TO SEE PATIENT AND HAD MANY QNS, I ANSWERED MANY I COULD AND THEN KASANDRA TEXTED DR. LI WHO CAME DOWN TO ANSWERED MORE QNS AND THEN DR. GAUTHIER CAME BY AND UPDATED HIM SOME MORE.
[2019-12-07 15:53] LABS: URINE BILIRUBIN NEGATIVE (Negative); URINE BLOOD TRACE (Negative); URINE CLARITY SL CLOUDY; URINE COLOR YELLOW; URINE GLUCOSE-RANDOM* NEGATIVE (Negative); URINE KETONES NEGATIVE (Negative); URINE LEUKOCYTES-REFLEX NEGATIVE (Negative); URINE NITRITE-REFLEX NEGATIVE (Negative); URINE PROTEIN (DIPSTICK) NEGATIVE (Negative)
[2019-12-07 16:00] VITALS: BP 75/41
[2019-12-07 16:26] VITALS: BP 84/46
--- NOTE | 2019-12-07 19:11 | NUR ---
PT NOT PROGESSING TOWARDS GOALS. REMAINS FEBRILE. TYLENOL GIVEN. TOLORATING TUBE FEEDINGS. COPIOUS AMT OF BLOOD TINGED SPUTUM WITH ODOR FROM ETT WHEN TURNED. REPORTED TO ONCOMING SHIFT.
[2019-12-08 05:47] LABS: HEMATOCRIT 34.5 % (42.0-52.0); HEMOGLOBIN 11.3 gm/dL (14.0-18.0); MCH 29.8 pg (26.0-34.0); MCHC 32.6 g/dL (28.0-37.0); MCV 91.4 fL (80.0-100.0); RBC 3.77 mil/uL (4.50-6.00); RDW 14.1 % (10.5-14.5); WBC 10.3 thou/uL (4.0-11.0)
[2019-12-08 05:48] LABS: CALCIUM 8.6 mg/dL (8.5-10.1); CREATININE 1.1 mg/dL (0.7-1.3); POTASSIUM 3.8 mmol/L (3.5-5.1)
[2019-12-08 08:00] VITALS: BP 89/48
--- NOTE | 2019-12-08 10:14 | NUR ---
PT REMAINS STABLE. OPERATIONS AGENT AND HOSPITALIST ROUNDED THIS AM. NO NEW ORDERS OR CHANGES TO PLAN OF CARE. PT TOLERATING TUBE FEEDS. WILL OPEN EYES TO STIMULI. VITAL SIGNS STABLE.
[2019-12-08 12:00] VITALS: BP 89/40
[2019-12-08 16:01] VITALS: BP 116/70
[2019-12-08 17:56] VITALS: BP 94/58
[2019-12-08 20:00] VITALS: BP 91/55
[2019-12-09] VITALS: BP 95/57
--- NOTE | 2019-12-09 02:23 | NUR ---
ASSESSMENT: PT ALERT, ABLE TO OPEN EYES, FOLLOW SIMPLE COMMANDS WHEN LIGHTLY SEDATED. VSS, AFEBRILE. SR PER MONITOR. SURESH PATENT WITH DARK YELLOW OUTPUT. TF PER OG TUBE INFUSING WITHOUT DIFFICULTY. TURNED EVERY TWO HOURS. DOES GET AGITATED WHEN AROUSED. RIGHT RADIAL LINE INTACT. ALL PORTS PATENT WITH LEFT SC TL PICC. RESTRAINTS INTACT. VENT SETTINGS TV-500 RATE-12 PEEP-5 AND FIO2-30% TOLERTATING TF WITH LOW RESIDUALS. ACCU CHECK OF 204 WAS TREATED WITH 18 UNITS OF LISPRO. BS WAS RECHECKED R/T PT'S DIAPHORETIC, AGITATED AND NOT FOLLOWING COMMANDS, BS WAS 238 AT THAT TIME. SAFETY MEASURES FOLLOWED. SLOW PROGRESS TOWARDS DC GOALS. WILL CONTINUE TO MONITOR.
[2019-12-09 04:00] VITALS: BP 91/53
[2019-12-09 05:53] LABS: HEMATOCRIT 32.3 % (42.0-52.0); HEMOGLOBIN 10.4 gm/dL (14.0-18.0); MCH 29.4 pg (26.0-34.0); MCHC 32.3 g/dL (28.0-37.0); MCV 91.1 fL (80.0-100.0); RBC 3.55 mil/uL (4.50-6.00); RDW 14.3 % (10.5-14.5); WBC 11.5 thou/uL (4.0-11.0)
[2019-12-09 06:19] LABS: CALCIUM 8.4 mg/dL (8.5-10.1); CREATININE 1.1 mg/dL (0.7-1.3)
[2019-12-09 07:10] LABS: HCO3 26.8 mmol/L (22.0-26.0); PCO2 34.1 mmHg (35.0-45.0); PO2 85.6 mmHg (80.0-100.0); pH 7.514 (7.360-7.450); sO2 97.3 % (92.0-98.0)
[2019-12-09 08:00] VITALS: BP 95/56
[2019-12-09 12:00] VITALS: BP 98/56
--- NOTE | 2019-12-09 14:55 | NUR ---
chart review. he still needs vent and tf for nutritional support. cm noted from window brother rabbi little at bedside saying prayers, unable to visit with brother during his visit. will cont following as needed for dc needs. madelaine brother cont to support his brother with prays, and dances at bedside to lift the energy level. unable to provide any insurance information.
[2019-12-09 16:00] VITALS: BP 87/51
--- NOTE | 2019-12-09 16:26 | NUR ---
PT ABLE TO FOLLOW COMMANDS. CPAP TRAIL x2. PT FAILED BOTH TIMES. PT GOT TACHYCARDIC, GAGGING AND COUGHING ON THE VENT, RESTLESS AND HYPERTENSIVE DURING THE CPAP TRIAL. PT TOLERATING TUBE FEED. ABDOMEN DISTENDED.
[2019-12-09 20:00] VITALS: BP 85/48
[2019-12-10] VITALS: BP 90/51
[2019-12-10 04:00] VITALS: BP 85/48
[2019-12-10 06:16] LABS: HEMATOCRIT 31.2 % (42.0-52.0); HEMOGLOBIN 10.2 gm/dL (14.0-18.0); MCH 29.6 pg (26.0-34.0); MCHC 32.7 g/dL (28.0-37.0); MCV 90.6 fL (80.0-100.0); RBC 3.45 mil/uL (4.50-6.00); RDW 14.2 % (10.5-14.5)
[2019-12-10 06:30] LABS: CALCIUM 8.4 mg/dL (8.5-10.1); CREATININE 0.9 mg/dL (0.7-1.3); POTASSIUM 4.2 mmol/L (3.5-5.1)
[2019-12-10 08:00] VITALS: BP 87/48
[2019-12-10 12:00] VITALS: BP 101/61
--- NOTE | 2019-12-10 19:15 | NUR ---
Pt febrile today with temp max 103.2. (oral). Tylenol given x2 doses. Blood cultures x2 . Urine culture obtained also and sent to the lab. Pt is tolerating tube feedings. VSS. Brother at bedside REport given to RN assuming care.
[2019-12-10 20:00] VITALS: BP 86/50
[2019-12-11] VITALS (7 sets, daily range): BP systolic 82–104; BP diastolic 47–64
[2019-12-11 05:49] LABS: CALCIUM 8.5 mg/dL (8.5-10.1); CREATININE 1.2 mg/dL (0.7-1.3); MAGNESIUM 2.2 mg/dL (1.8-2.4); POTASSIUM 4.2 mmol/L (3.5-5.1)
[2019-12-11 05:52] LABS: HEMOGLOBIN 10.4 gm/dL (14.0-18.0); MCH 29.3 pg (26.0-34.0); MCHC 32.3 g/dL (28.0-37.0); MCV 90.8 fL (80.0-100.0); RBC 3.53 mil/uL (4.50-6.00); RDW 14.2 % (10.5-14.5); WBC 12.4 thou/uL (4.0-11.0)
--- NOTE | 2019-12-11 19:00 | NUR ---
Pt awake at present and remains on sedation. Pt has remained febrile today. Abdomen is large but soft with hypoactive bowel sounds. Page placed x2 to Dr Birch pager to inform. Call not returned by time of change of shift report. Information passed along to oncoming nurse. Pt has been tolerating tube feedings. Brother at bedside today. Education provided on patient status. CPAP for less than five mintues due to tachpnea. Continue to work toward goals.
--- NOTE | 2019-12-11 20:30 | NUR ---
2030-It was informed that patient brother called and would like a return call. Nurse called twice without an answer. Will await his return call.
--- NOTE | 2019-12-11 20:47 | NUR ---
2039- Nurse talked with patients brother, Pj Renee, when he called back. Nurse expressed to him and she attempted to reach out to him twice without the phone being answered. He expressed he armando not carry his phone with him and that he is using a friends phone. Nurse asked him what the number to reach him at if we need to get a hold of him and he expressed the same number as we have. Nurse expressed that phone number did not go through to him. No further discussion on this. Patients brother expressed great concern that he is worried about patients bowel movements. He expressed he wanted the doctor called now to get something done about this. Nurse expressed a call would be placed to the nurse practitioner. Nurse updated patients brother on patient status and plan of care. He expressed he would call back in an hour to see about the progress. 2044- Nurse called Anabell Coto in regards to this situation. She expressed she would look into his chart and see what she thinks. Nurse to await further orders.
--- NOTE | 2019-12-11 23:03 | NUR ---
2300- Nurse returned phone call to patients brother, Pj Renee, in regards to KUB results. Nurse did not leave message as it was an unidentified voicemail. Will await his return call.
[2019-12-12] VITALS: BP 86/47
--- NOTE | 2019-12-12 05:53 | NUR ---
Patient progressing towards plan of care as evidenced by decreased temperatures, tracking more with interventions, passing flatus, tolerating tube feedings. Nurse to continue to monitor patient status.
[2019-12-12 08:00] VITALS: BP 91/51
[2019-12-12 09:16] VITALS: BP 88/58
[2019-12-12 10:49] LABS: ABSOLUTE NEUTROPHILS 8.9 thou/uL (1.4-8.2); BASOPHILS 0.5 % (0.0-2.0); EOSINOPHILS 0.5 % (0.0-3.0); HEMATOCRIT 30.9 % (42.0-52.0); HEMOGLOBIN 10.2 gm/dL (14.0-18.0); LYMPHOCYTES 11.1 % (24.0-44.0); MCH 29.8 pg (26.0-34.0); MCHC 33.1 g/dL (28.0-37.0); MONOCYTES 5.5 % (1.0-8.0); PLATELET COUNT 323 thou/uL (150-400); POLYS 82.4 % (36.0-66.0); RBC 3.44 mil/uL (4.50-6.00); RDW 14.6 % (10.5-14.5); WBC 10.8 thou/uL (4.0-11.0)
[2019-12-12 10:59] LABS: CALCIUM 8.3 mg/dL (8.5-10.1); CREATININE 1.1 mg/dL (0.7-1.3); POTASSIUM 4.2 mmol/L (3.5-5.1)
[2019-12-12 11:03] LABS: ALBUMIN 2.1 g/dL (3.4-5.0); TOTAL BILIRUBIN 0.5 mg/dL (0.2-1.0); TOTAL PROTEIN 6.5 g/dL (6.4-8.2)
[2019-12-12 11:11] LABS: ANISOCYTOSIS 2+; LARGE PLATELETS FEW; PLATELET ESTIMATE NORMAL
[2019-12-12 11:39] VITALS: BP 95/62
--- NOTE | 2019-12-12 14:45 | NUR ---
ang visited with brother sidney via phone call, he still here visiting madelaine. asked him how long he would be in town from [place] " i will be here until he is healed, and i want to know how is he improvement?"/brother sidney. madelaine remains intubated and has tube for nutritional support. passed on information to .
[2019-12-12 16:00] VITALS: BP 92/61
[2019-12-13] VITALS (12 sets, daily range): BP systolic 84–97; BP diastolic 49–64
--- NOTE | 2019-12-13 | NUR ---
PT HAD A LARGE SOFT BROWN LOOSE STOOL. COMPLETE BATH AND LINEN CHANGE DONE.
--- NOTE | 2019-12-13 06:00 | NUR ---
REMAINS INTUBATED AND SEDATED WITH PRECEDEX AND PROPOFOL GTT. NO FURTHER STOOLS. 700 CC UO THIS SHIFT. LUNGS COARSE BILAT, ABDOMEN MUCH SOFTER AND LESS DISTENDED. PROGRESSING TOWARD GOALS WILL CONT TO MONITOR
[2019-12-13 06:21] LABS: HEMATOCRIT 28.8 % (42.0-52.0); HEMOGLOBIN 9.5 gm/dL (14.0-18.0); MCH 29.9 pg (26.0-34.0); MCHC 33.1 g/dL (28.0-37.0); MCV 90.4 fL (80.0-100.0); RBC 3.19 mil/uL (4.50-6.00); RDW 14.1 % (10.5-14.5); WBC 9.1 thou/uL (4.0-11.0)
[2019-12-13 06:31] LABS: CALCIUM 8.2 mg/dL (8.5-10.1); CREATININE 1.2 mg/dL (0.7-1.3); POTASSIUM 3.5 mmol/L (3.5-5.1)
--- NOTE | 2019-12-13 07:30 | NUR ---
PT FLAILING AROUND, MOVES EXT BUT NOT TO COMMAND. ATTEMPTING TO TONGUE OUT TUBE. RESEDATED ON DIPRIVAN
--- NOTE | 2019-12-13 09:26 | NUR ---
PERIODS OF RESTLESSNESS TONIGHT SHAKES HEAD BACK AND FORTH
--- NOTE | 2019-12-13 13:50 | NUR ---
PT BROTHER HERE. UPDATE GIVEN. ORDERS GIVEN. R HALLEY HEWITT DCD PER YANN FOWLER. SITE WITHOUT BLEEDING OR HEMATOMA.
--- NOTE | 2019-12-13 15:00 | NUR ---
DR. HENSON HERE. UPDATE GIVEN. NO CPAP TRIAL TODAY DUE TO PT FLAILING AROUND AND NOT FOLLOWING COMMAND. PT BROTHER AT BEDSIDE. UPDATE GIVEN. EMOTIONAL SUPPORT GIVEN.
--- NOTE | 2019-12-13 20:19 | NUR ---
PT NOT PROGRESING TOWARDS GOALS.
[2019-12-14] VITALS (23 sets, daily range): BP systolic 82–102; BP diastolic 54–67
[2019-12-14 06:19] LABS: CALCIUM 7.8 mg/dL (8.5-10.1); CREATININE 1.1 mg/dL (0.7-1.3); POTASSIUM 3.5 mmol/L (3.5-5.1)
--- NOTE | 2019-12-14 18:14 | NUR ---
CPAP TRIAL FOR 30MIN, PT FAILED CPAP TRIAL. PT TACHYPNEIC DURING TRIAL. ABDOMEN DISTENDED. GI CONSULTED. FMS INSERTED BUT REMOVED PER GI FLOOR TRADER. ENEMA AND SUPPOSITORY GIVEN. NO CHANGE WITH DISTENTION OF ABDOMEN. URINE OUTPUT AEQUATE. PRECEDEX GTT TITRATED DOWN TO 0.6, PROPOFOL SAME 30MCG. PT HAS REMAINED CALM AND FOLLOWED COMMANDS THROUGHOUT THE DAY. FACETIME WITH PT DAUGHTER ATEERAH. BP ON THE LOW SIDE MOST OF THE DAY BUT MAP ABOVE 60. TUBE FEED AT 40ML/HR. GOAL IS 65ML/HR. ADVANCE IF DISTENTION GETS BETTER OVER NIGHT PER GI FLOOR TRADER.
[2019-12-15] VITALS (48 sets, daily range): BP systolic 75–104; BP diastolic 44–67
--- NOTE | 2019-12-15 03:33 | NUR ---
PATIENT REMAINS ON THE VENT. PROPOFOL AND PRECEDEX GTT. TITRATED ORDERED. FOLLOWS COMMANDS. AFEBRILE. VSS.MIDIUM LOOSE BM THIS TOD.SURESH IN PLACE WITH GOOD U/O. SURESH CARE PROVIDED. FAMILY UPDATED. BATH PROVIDED. CURRENTLY RESTING. WILL KEEP MONITORING.
[2019-12-15 06:04] LABS: HEMATOCRIT 29.4 % (42.0-52.0); HEMOGLOBIN 9.7 gm/dL (14.0-18.0); MCH 29.9 pg (26.0-34.0); MCHC 33.1 g/dL (28.0-37.0); MCV 90.4 fL (80.0-100.0); RBC 3.25 mil/uL (4.50-6.00); RDW 14.3 % (10.5-14.5)
[2019-12-15 06:50] LABS: CALCIUM 7.9 mg/dL (8.5-10.1); POTASSIUM 3.5 mmol/L (3.5-5.1)
--- NOTE | 2019-12-15 11:04 | NUR ---
WOUND CARE CONSULT; ASSESSED R BUTTOCK WOUND W/ TOBACCO SORTER NOELLE, PT SEDATED, ON VENT, PER NOELLE RN PT HAD A RECTAL TUBE POSSIBLY CAUSED WOUND, APPEARS DTI, NOT OPEN, NO S/S INFECTION, RECTAL TUBE NO LONGER IN PLACE, HEELS OK NO SKIN BREAKDOWN ELSEWHERE. SEE PROCESS INTERVENTION FOR WOUND DETAILS,PHOTO IN CHART RECOMMENDATIONS; BORDER FOAM DAILY AND PRN TO R BUTTOCK WOUND, CONT PRESSURE RELIEF, TURN MINIMAL Q 2HOURS TOBACCO SORTER AWARE
--- NOTE | 2019-12-15 14:14 | NUR ---
Request was placed to case management to assist with identifying legal next of kin or DPOA per request from Dr Thapa. Pt has had not a bowel movement yet this shift. Biscodyl suppository given rectally now and dose of Polyethylene Glycol powder given per OG tube. Pt's brother called and said her would be in to visit later today. Tube feeding increased to 50 nl/hr per feeding tube.
--- NOTE | 2019-12-15 18:47 | NUR ---
Sinature for consent for Tracheostomy and PEG tube obtained from brother. Anesthesia consent not completed as anesthesiologist has not talked with brother yet. Patient is unable to sign. No stools today. Abdomen is distended but soft. Low tube feeding residuals. Pt's daughter also called and talked to the patient over her cell phone. Continue to support.
--- NOTE | 2019-12-15 21:35 | NUR ---
DR ALLEN CALLED ICU AT 2129, ASKED WHEN PT IS SCHEDULED FOR TACH TOMORROW, RN INFORMED HIM THAT TRACH HASNT BEEN SCHEDULED YET. STATED HE WILL PUT PT ON OR SCHEDULE BOARD FOR NOON 12/15 FOR A PEG PLACEMENT
--- NOTE | 2019-12-15 21:39 | NUR ---
CPAP TRIAL TONIGHT FOR 15 MINUTES, PT RR BTW 30-38
[2019-12-16] VITALS (68 sets, daily range): BP systolic 75–152; BP diastolic 46–92
--- NOTE | 2019-12-16 01:50 | NUR ---
PT HAD 2 LARGE LIQUID BM TONIGHT, JUANY SHERIDAN NOTIFIED, ORDER FOR FMS RECIEVED AND PLACED
[2019-12-16 05:33] LABS: HEMATOCRIT 27.9 % (42.0-52.0); HEMOGLOBIN 9.4 gm/dL (14.0-18.0); MCH 29.8 pg (26.0-34.0); MCHC 33.6 g/dL (28.0-37.0); MCV 88.9 fL (80.0-100.0); RBC 3.14 mil/uL (4.50-6.00); RDW 13.8 % (10.5-14.5)
[2019-12-16 06:05] LABS: CALCIUM 7.9 mg/dL (8.5-10.1); CREATININE 1.1 mg/dL (0.7-1.3); POTASSIUM 3.4 mmol/L (3.5-5.1)
--- NOTE | 2019-12-16 08:00 | NUR ---
dr. whyte here. update given. plan trach and peg today. Consent signed. Family updated per .
--- NOTE | 2019-12-16 09:16 | NUR ---
Once tube feeds resume after PEG, continue to recommend vital high protein at goal 65ml/hr. Would also consider discontinue IV maintenance fluids once TF at goal and just add water flushes of 250 every 6hr since Na level has recovered.
--- NOTE | 2019-12-16 09:32 | NUR ---
chart review. am rounds, cm cont to wear own face mask and shield. pt possible going to trach and peg today. cm spoke with pt brother sidney via phone call, thank you for call, i want he to walk up so i can visit with him. left [place] to come her to help by brother, he needs the energy. thank you call so good to him per brother sidney. will cont following as needed for dc needs.
--- NOTE | 2019-12-16 11:50 | NUR ---
To OR with OR staff on monitor. Bagging with 100% 02.
--- NOTE | 2019-12-16 13:40 | NUR ---
Return from OR. VSS. New #7.[address] Peg intact. small amt of dried blood around peg. Binder in place and peg out of reach. Pt remians sedated on diprivan and precedex. Replacing KCL. Will give diuretics per peg.
--- NOTE | 2019-12-16 13:50 | NUR ---
Dr. Singleton here. Update given. pt with small amt of blood on trach ties. Otherwise stable. Keepin pt sedated post op with head midline. Abd binder in place.
[2019-12-16 15:45] LABS: BE(vivo) 0 mmol/L (-2 to +3); HCO3 23.4 mmol/L (22.0-26.0); PCO2 33.9 mmHg (35.0-45.0); PO2 77.9 mmHg (80.0-100.0); pH 7.456 (7.360-7.450); sO2 96.2 % (92.0-98.0)
--- NOTE | 2019-12-16 16:00 | NUR ---
Dr. Scruggs here update given. Will have RT obtain new sputum. aware of micro results of last sputum specimen
--- NOTE | 2019-12-16 20:17 | NUR ---
Reviewed Dr. Tanner note. Today's KUB same as a day ago. Will start TF slowly.
[2019-12-17] VITALS (78 sets, daily range): BP systolic 80–120; BP diastolic 44–76
[2019-12-17 05:17] LABS: HEMATOCRIT 31.1 % (42.0-52.0); HEMOGLOBIN 10.2 gm/dL (14.0-18.0); MCH 29.4 pg (26.0-34.0); MCHC 32.7 g/dL (28.0-37.0); MCV 89.9 fL (80.0-100.0); RBC 3.46 mil/uL (4.50-6.00); RDW 14.3 % (10.5-14.5); WBC 13.7 thou/uL (4.0-11.0)
[2019-12-17 05:22] LABS: BE(vivo) -1.3 mmol/L (-2 to +3); HCO3 21.1 mmol/L (22.0-26.0); PCO2 28.4 mmHg (35.0-45.0); PO2 90.3 mmHg (80.0-100.0); pH 7.489 (7.360-7.450); sO2 97.6 % (92.0-98.0)
[2019-12-17 05:37] LABS: CALCIUM 8.4 mg/dL (8.5-10.1); CREATININE 1.2 mg/dL (0.7-1.3); POTASSIUM 3.6 mmol/L (3.5-5.1)
--- NOTE | 2019-12-17 08:50 | NUR ---
ASSUMED CARE AT 0700, ASSESSMENT AND VITAL SIGNS COMPLETED PER ICU PROTOCOL. RN WILL CONTINUE TO MONITOR AND FOLLOW PLAN OF CARE.
[2019-12-18] VITALS (38 sets, daily range): BP systolic 94–156; BP diastolic 59–110
--- NOTE | 2019-12-18 02:43 | NUR ---
ASSUMED CARE OF PATIENT AT 1900. PATIENT BECAME FEBRILE, TREATED WITH TYLENOL. SLIGHTLY REDUCED. WILL CONTINUE TO MONITOR CLOSELY. RESTRAINTS REMAIN OFF, PATIENT ANXIOUS AT TIMES BUT ABLE TO REDIRECT. NO ATTEMPTS TO PULL AT TRACH OR PEG TUBE. URINARY CATH BAG AND UROMOMETER REPLACED DUE TO SIGNIFICANT SEDIMENT IN OLD CATHETER BAG. DAUGHTER CALLED THIS RN, UPDATED ON PLAN OF CARE. ALL QUESTIONS ANSWERED. VERBALIZED UNDERSTANDING. PROGRESSING SLOWLY TOWARDS POC GOALS.
[2019-12-18 05:55] LABS: CALCIUM 8.3 mg/dL (8.5-10.1); CREATININE 0.9 mg/dL (0.7-1.3); POTASSIUM 3.5 mmol/L (3.5-5.1)
--- NOTE | 2019-12-18 10:12 | NUR ---
ASSUMED CARE AT 0700, ASSESSMENT AND VITAL SIGNS COMPLETED PER ICU PROTOCOL. DR. PLATT ROUNDED THIS AM, PLAN OF CARE DISCUSSED. RN WILL CONTINUE TO MONITOR.
[2019-12-18 15:46] LABS: URINE BILIRUBIN NEGATIVE (Negative); URINE BLOOD 3+ (Negative); URINE CLARITY SL CLOUDY; URINE COLOR YELLOW; URINE GLUCOSE-RANDOM* NEGATIVE (Negative); URINE KETONES NEGATIVE (Negative); URINE LEUKOCYTES TRACE (Negative); URINE NITRITE NEGATIVE (Negative); URINE PROTEIN (DIPSTICK) 1+ (Negative); URINE SPECIFIC GRAVITY 1.025 (1.005-1.035)
[2019-12-18 16:05] LABS: MUCUS >6 Heavy strn/LPF (None Seen); URINE RBC >20 Many /HPF (0-2)
[2019-12-18 16:06] LABS: CASTS None Seen /LPF (None Seen); URINE WBC 0-5 Rare /HPF (0-5)
[2019-12-18 16:07] LABS: SQUAMOUS 0-3 Few /LPF (0-3)
[2019-12-18 16:14] LABS: URIC ACID CRYSTALS >10 Many /LPF (None Seen)
[2019-12-19] VITALS (34 sets, daily range): BP systolic 80–163; BP diastolic 50–90
[2019-12-19 04:51] LABS: ABSOLUTE NEUTROPHILS 9.1 thou/uL (1.4-8.2); BASOPHILS 0.5 % (0.0-2.0); EOSINOPHILS 0.1 % (0.0-3.0); HEMATOCRIT 29.7 % (42.0-52.0); HEMOGLOBIN 9.8 gm/dL (14.0-18.0); LYMPHOCYTES 6.8 % (24.0-44.0); MCH 29.9 pg (26.0-34.0); MCHC 33.1 g/dL (28.0-37.0); MCV 90.4 fL (80.0-100.0); MONOCYTES 3.4 % (1.0-8.0); PLATELET COUNT 380 thou/uL (150-400); POLYS 89.2 % (36.0-66.0); RBC 3.29 mil/uL (4.50-6.00); RDW 14.3 % (10.5-14.5); WBC 10.2 thou/uL (4.0-11.0)
[2019-12-19 05:26] LABS: CALCIUM 8.3 mg/dL (8.5-10.1); MAGNESIUM 2.5 mg/dL (1.8-2.4); POTASSIUM 4.1 mmol/L (3.5-5.1); TOTAL BILIRUBIN 0.4 mg/dL (0.2-1.0); TOTAL PROTEIN 6.5 g/dL (6.4-8.2)
--- NOTE | 2019-12-19 09:10 | NUR ---
madelaine got his trach and peg, noted cm consult for ltac. he is still pat for insurance. cm spoke with bedside nurse to have her ask madelaine about if he has health insurance, and ask brother again. cm notified bedside nurse and hospitalist he is patient pay at this time.
--- NOTE | 2019-12-19 10:46 | NUR ---
WOUND CARE F/U; ASSESSED R BUTTOCK WOUND W/ DANII LINCOLN RN, WOUND COORDINATOR, STABLE DTI R BUTTOCK, NO DRAINAGE, NO S/S INFECTION, PT REMAINS ON VENT, SEE PROCESS INTERVENTION FOR WOUND DETAILS RECOMMENDATIONS; PAINT AREA DAILY W/ BETADINE, COVER W/ BORDER FOAM DRSG DAILY AND PRN, PRESSURE RELIEF, OFF LOADING, TURN [id number] MINIMAL ORE ROASTER AWARE
[2019-12-19 10:47] LABS: BE(vivo) -3.3 mmol/L (-2 to +3); HCO3 23.6 mmol/L (22.0-26.0); PCO2 49.9 mmHg (35.0-45.0); PO2 84.5 mmHg (80.0-100.0); sO2 95.2 % (92.0-98.0)
[2019-12-19 10:48] LABS: pH 7.293 (7.360-7.450)
--- NOTE | 2019-12-19 11:30 | NUR ---
PATIENT ON THE VENT PER TRACH, CPAP X1HR THIS MORNING AND TOLERATED WELL. VITALS STABLE AND DENIED PAIN EARLIER. AT AROUND 1030 PATIENT WAS NOTED TO BE TACHYPNIC AND THROWING ARMS UP IN THE AIR, ALSO SEEMED TO BE IN DISTRESS AND STARTED DESATURATING. PATIENT SUCTIONED, SEDATION TITRATED UP AND PAIN MEDICATION ADMINISTERED. PATIENT DIDN'T SEEM TO RECOVER. DR. HENSON WAS ON THE UNIT AND SO CAME TO BEDSIDE. PATIENT WAS BAGGED FOR A FEW MINUTES AND SATURATION WENT BACK UP, ABG AND CHEST XRAY OBTAINED. DR. HENSON PERFORMED EMERGENCY DIAGNOSTIC BRONCH AT THE BEDSIDE. FUROSEMIDE ADMINISTERED AND PROPOFOL STARTED. PATIENT RECOVERED WELL AND SEEMS TO BE RESTING WELL. SUCTIONED AND FROTHY BLOOD TINGED SPUTUM PER TRACH. WILL CONTINUE TO MONITOR CLOSELY.
--- NOTE | 2019-12-19 12:22 | EKG ---
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1955 Requested By: Nate Singleton Order Number: [id number] MD: Bala Tian Measurements Intervals [place] Rate: 107 P: 60 [place]: 125 QRS: 55 QRSD: 78 T: 102 QT: 342 QTc: 457 Interpretive Statements Sinus tachycardia Ventricular premature complex Aberrant conduction of SV complex(es) Probable left atrial enlargement Low voltage, extremity leads Nonspecific T abnormalities, lateral leads Compared to ECG 12/02/2019 11:46:56 Ectopic atrial rhythm no longer present Atrial premature complex(es) no longer present Prolonged QT interval no longer present Electronically Signed On 12-19-2019 12:22:07 CDT by Bala Tian [email or web address] <ELECTRONICALLY SIGNED> By: Bala Tian MD, [facility] 12/19/19 1222 [id number] Bala Tian MD, [facility] /EPI
--- NOTE | 2019-12-19 15:02 | NUR ---
BROTHER CAME IN TO VISIT, UPDATED AND QNS ANSWERED.
[2019-12-19 15:34] LABS: BE(vivo) 0.8 mmol/L (-2 to +3); HCO3 25.4 mmol/L (22.0-26.0); PCO2 40.3 mmHg (35.0-45.0); PO2 92.5 mmHg (80.0-100.0); pH 7.417 (7.360-7.450); sO2 97.2 % (92.0-98.0)
[2019-12-20] VITALS (45 sets, daily range): BP systolic 84–127; BP diastolic 50–82
[2019-12-20 04:42] LABS: CALCIUM 7.8 mg/dL (8.5-10.1); CREATININE 0.9 mg/dL (0.7-1.3); POTASSIUM 3.4 mmol/L (3.5-5.1)
--- NOTE | 2019-12-20 06:11 | NUR ---
ASSUMED CARE OF PATIENT AT 1900. VSS, REMAINS SLIGHTLY FEBRILE CHARTED. ELECTROLYTES REPLACED THIS MORNING PER PROTOCOL. DAUGHTER CALLED THIS RN, UPDATE GIVEN. VERBALIZED UNDERSTANDING. WORKING TOWARDS POC GOALS.
--- NOTE | 2019-12-20 14:51 | NUR ---
ON THE VENT PER TRACH, LIGHT SEDATION AND EASILY AWAKENS AND FOLLOWS SOME COMMANDS AND MOVES ALL EXTREMITIES. VITALS STABLE. TOLERATING TUBEFEEDING PER PEG. NO CPAP TRIAL TODAY PER DR. HENSON. BROTHER AT THE BEDSIDE THIS AFTERNOON AND UPDATED. PICC LINE PLACED AT THE BEDSIDE BY PICC RN FESTUS. ORDERS TO DC LEFT SC CENTRAL LINE ONCE WE CAN USE PICC LINE. WILL CONTINUE WITH POC.
--- NOTE | 2019-12-20 15:01 | NUR ---
DR MORRISSEY ORDERED PICC PLACED AFTER CONFIRMATION REMOVED LSC LINE. PT'S LABS,ORDER AND CONSENT VERIFIED. DISCUSSED BENEFITS AND REASON FOR EXCHANGE WITH BROTHER,VERBALIZED UNDERSTANDING. JAGJIT ARM BRACHIAL WAS WIDELY PATENT WITH USG. 5FR TL PICC TRIMMED TO 40CM INSERTED TO 0CM. STAT CXR ORDERED. PT TOLERATED WELL
--- NOTE | 2019-12-20 16:40 | NUR ---
CXR TOO DEEP, PICC WITHDREW 3CM 2ND CXR CONFIRMED CAJ. PICC RELEASED TO YOSELIN FOWLER PER PROTOCOL FOR IMMEDIATE USE
[2019-12-21] VITALS (47 sets, daily range): BP systolic 77–113; BP diastolic 48–74
[2019-12-21 06:35] LABS: CREATININE 0.8 mg/dL (0.7-1.3); POTASSIUM 3.1 mmol/L (3.5-5.1)
--- NOTE | 2019-12-21 09:16 | NUR ---
CM REACHED OUT TO PATIENTS BROTHER JOSÉ [phone] IN ATTEMPTS TO GET MORE INFORMATION REGARDING PATIENTS INSURANCE. HE REPORTS HE LIVES IN [place] AND DOES NOT KNOW ALOT OF THE INFORMATION. CM WAS INFORMED PT HAS A DAUGHTER AND BART ASKED JOSÉ IF HE KNEW IF HIS DAUGHTER WOULD HAVE ANY INFORMATION AND HE REPORTS HE DOES NOT THINK THEY HAVE SPOKEN TO EACHOTHER IN YEARS AND SHE DOES NOT LIVE IN . CM ASKED IF PT HAD AN EMPLOYER AND CM COULD ATTEMPT TO CONTACT THEM, JOSÉ REPORTS I DO NOT KNOW I LIVE IN [place] I DO NOT HAVE ANY OF THAT INFORMATION. HE REPORTS HE IS WORKING WITH AN AGENCY IN ATTEMPTS TO GET MEDICAID. CM REPORTED [facility]SIST HERE AT [facility] WILL SCREEN PT FOR MEDICAID. CM ALSO REACHED OUT TO [place] TO SEE IF THEY HAD ANYTHING ON FILE FROM PICKING UP PATIENT AND THEY REPORT THEY DO NOT. PTS BROTHER JOSÉ STATES THAT PATIENTS NAME IS NOT MARY IT IS MALLY COOK. CM NOTIFIED CM DIRECTOR WELL TECH TO SEE IF THEY CAN VERIFY ANY INSURANCE WITH THIS INFORMATION. CM ALSO NOTIFIED PRE-CERT 0075 TO ATTEMPT TO VERIFY ANY INSURANCE. PT IS STILL UNABLE TO COMMUNICATE AT THIS TIME.
--- NOTE | 2019-12-21 09:54 | 2DMMODE ---
[facility] [place] [address] 2 D/M-MODE ECHOCARDIOGRAM Name: DONATO PENG Room #: 246-P ADM IN M.R.#: [id number] Admission: 11/28/19 Attend Phys: Kavin Colmenares MD Discharge: Date of : 55 Report #: [id number] THIS REPORT FOR: cc: FAM - No family physician/PCP FAM - No family physician/PCP Callum Velez MD [facility] ~ APPROVED REPORT Study performed: 12/21/2019 09:10:05 EXAM: Limited 2D, Doppler, and color-flow Echocardiogram Patient Location: ICU Room #: 246 Status: routine BSA: 1.79 HR: 67 bpm BP: 87/56 mmHg Rhythm: NSR Other Information Study Quality: Adequate Indications Abbreviated echo for follow up LV function. Cardiomyopathy. Hx: KY/PCI 11/28/19. 2D Dimensions LVDs: 52.67 (25-40mm) Aortic Valve AoV Peak Yonatan.: 1.01 m/s AO Peak Gr.: 4.07 mmHg Tricuspid Valve TR Peak Yonatan.: 2.61 m/s RAP Estimate: 10.00 mmHg TR Peak Gr.: 27.20 mmHg PA Pressure: 37.00 mmHg Left Ventricle Left ventricle is mildly dilated. There is global hypokinesis of the left ventricle. Left ventricular systolic function is severely decreased. LVEF is 20-25%. Right Ventricle The right ventricle is normal size. The right ventricular systolic [facility] [address] [place] [address] 2 D/M-MODE ECHOCARDIOGRAM Name: PEDRO PENGAB Room #: 246-P ADM IN M.R.#: [id number] Admission: 11/28/19 Attend Phys: Kavin Colmenares, Discharge: Date of : 55 Report #: [id number] function is normal. Atria Left atrium is dilated. The right atrium size is normal. Aortic Valve Aortic valve is mildly calcified. No aortic regurgitation is present. There is no aortic valvular stenosis. Mitral Valve The mitral valve is normal in structure. Moderate mitral regurgitation. Tricuspid Valve The tricuspid valve is normal in structure. Trace tricuspid regurgitation. Estimated PAP is 35-40mmHg. Pulmonic Valve The pulmonary valve is normal in structure. There is no pulmonic valvular regurgitation. Great Vessels The aortic root is normal in size. IVC is dilated and collapses <50% with inspiration. Pericardium There is no pericardial effusion. <Conclusion> Abbreviated study Left ventricular systolic function is severely decreased. There is global hypokinesis of the left ventricle. LVEF is 20-25%. Left atrium is dilated. Aortic valve is mildly calcified. No aortic regurgitation or stenosis. The mitral valve is normal in structure. Moderate mitral regurgitation. There is no pericardial effusion. <ELECTRONICALLY SIGNED> By: Callum Velez MD, [facility] 12/21/19953 3 3 Callum Velez MD, [facility] /INF
--- NOTE | 2019-12-21 10:08 | NUR ---
WOUND CARE FU; ASSESSED R BUTTOCK WOUND W/ HARBOR PILOT DYLAN AND STUDENT RN, WOUND SAME, CLOSED, DTI, NO S/S INFECTION, NO DRAINAGE, SEE PROCESS INTERVENTION FOR WOUND DETAILS, REMAINS ON VENT, INCONT STOOL, FECAL MANAGEMENT SYSTEM IN PLACE, PHOTO TAKEN RECOMMENDATIONS; CONT CURRENT POC, PAINT W/ BETADINE, COVER W/ BORDER FOAM DRSG DAILY AND PRN,CONT PRESSURE RELIEF, OFF LOADING, TURN Q2 HOURS MINIMAL HARBOR PILOT AWARE
--- NOTE | 2019-12-21 12:58 | NUR ---
AT BEGINNING OF SHIFT PT'S ID BAND STATED NAME MARY VIVAS. APPROXIMATELY 0845 MAKAYLA FROM REGISTRATION ROUNDED ON PT AND TOLD RN THAT HE UPDATED THE PT'S INFORMATION IN THE EMR AND PT'S ACTUAL NAME IS DONATO PENG AND THAT NAME HAS BEEN UPDATED IN THE SYSTEM. REGISTRATION STATES THEY STILL NEED PT'S SOCIAL SECURITY NUMBER. PT IN NON-VERBAL AT THIS TIME AND IS UNABLE TO WRITE WORDS AT THIS TIME. SPEECH THERAPY HAS BEEN CONSULTED FOR COMMUNICATION ST STATES SHE EVALUATED THE PT A FEW DAYS AGO AND WAS UNABLE TO GET HIM TO WRITE LEGIBLY OR TO USE THE COMMUNICATION BOARD AT THIS TIME.
--- NOTE | 2019-12-21 13:01 | NUR ---
cm notified by cm team that pt name is mc and goes by madelaine or neymar. cm notified by sw that [facility] was going to call cm rt mc. will cont following as needed for dc needs.
[2019-12-22] VITALS (46 sets, daily range): BP systolic 79–128; BP diastolic 45–88
[2019-12-22 05:48] LABS: ABSOLUTE NEUTROPHILS 6.1 thou/uL (1.4-8.2); BASOPHILS 0.5 % (0.0-2.0); EOSINOPHILS 1.5 % (0.0-3.0); HEMATOCRIT 25.3 % (42.0-52.0); HEMOGLOBIN 8.4 gm/dL (14.0-18.0); LYMPHOCYTES 15.8 % (24.0-44.0); MCH 30.3 pg (26.0-34.0); MCHC 33.4 g/dL (28.0-37.0); MCV 90.7 fL (80.0-100.0); MONOCYTES 3.9 % (1.0-8.0); PLATELET COUNT 268 thou/uL (150-400); POLYS 78.3 % (36.0-66.0); RBC 2.79 mil/uL (4.50-6.00); RDW 14.5 % (10.5-14.5); WBC 7.9 thou/uL (4.0-11.0)
[2019-12-22 05:58] LABS: ALBUMIN 1.8 g/dL (3.4-5.0); CALCIUM 7.8 mg/dL (8.5-10.1); CREATININE 0.8 mg/dL (0.7-1.3); POTASSIUM 3.4 mmol/L (3.5-5.1); TOTAL BILIRUBIN 0.4 mg/dL (0.2-1.0); TOTAL PROTEIN 5.8 g/dL (6.4-8.2)
--- NOTE | 2019-12-22 06:00 | NUR ---
REMAINS TRACHED AND VENTED. PROPOFOL 20 MCG AND PRECEDEX 1 MCG FOR LIGHT SEDATION. FOLLOWS SIMPLE COMMANDS. NODS APPROP, AFEBRILE. 1400 CC UO AND A SCANT AMT OF LIQ STOOL FROM FMS. BATHED. WILL CONT TO MONITOR.,
--- NOTE | 2019-12-22 07:30 | NUR ---
DR SWANN NOTIFIED FOR HIM TO CHECK ON SUTURES LEFT IN TRACH SITE TODAY.
--- NOTE | 2019-12-22 11:50 | NUR ---
ang called and left message for elmer which brother sidney requested, no answer [phone]. ang requested call back. team still working on trying to find out if raquel has ss # or insurance. ang visited with his brother in waiting room, he stated i tried to ask him is ss # and he got all shaky they alarms going off, just asked me, he needs to rest. call elmer with [facility] # [phone]. ang education that i have all ready left message for vern. will cont following as needed for dc needs. dr going to request medical records from surrounding hospital to see that help him.
--- NOTE | 2019-12-22 13:27 | NUR ---
ON THE VENT PER TRACH, VITALS STABLE AND DENIES PAIN BY SHAKING HEAD. LIGHT SEDATION FOR VENT MANAGEMENT. TOLERATING TUBEFEEDING PER PEG. BROTHER AT THE BEDSIDE AND UPDATED BY RN. DR. HENSON ALSO UPDATED PATIENT'S BROTHER DURING ROUNDING AND RECOMMENDED FOR BROTHER TO TALK TO GRAIN COMBINER FOR ANY CARDIAC RELATED QNS. I CALLED DR. TRIPATHI'S OFFICE AND TALKED TO CLARY RUIZ WHO TALKED TO MD. DR. TRIPATHI CAME BACK TO THE UNIT AND CONFERENCED WITH PATIENT'S BROTHER JOSÉ AT LENGTH AND ANSWERED QNS AND GAVE HIM HIS CARD TO CALL OFFICE WITH ANY FURTHER QNS.
[2019-12-23] VITALS (48 sets, daily range): BP systolic 72–106; BP diastolic 40–69
--- NOTE | 2019-12-23 04:28 | NUR ---
ASSUMED CARE AT 1900. PT TRACHED AND VENTED. VSS. PT ON PROPOFOL AT 20MCG AND PRECEDEX AT 1.4. PT FOLOWS COMMANDS, WILL SQUEEZ HANDS AND WIGGLE TOES, & TRACKS. BATH THIS SHIFT. PT IS STABLE, RESTING WELL, LOW GRADE FEVER OF 99.3 AXILLARY THIS SHIFT, CAME DOWN TO 98 BY ITSELF AT 4AM. PT IS STABLE YET OCASSIONALLY HYPOTENSIVE. WILL CONTINUE TO MONITOR.
[2019-12-23 05:25] LABS: HEMATOCRIT 25.4 % (42.0-52.0); HEMOGLOBIN 8.5 gm/dL (14.0-18.0); MCH 30.1 pg (26.0-34.0); MCHC 33.3 g/dL (28.0-37.0); MCV 90.5 fL (80.0-100.0); RBC 2.81 mil/uL (4.50-6.00); RDW 14.8 % (10.5-14.5)
[2019-12-23 05:30] LABS: CALCIUM 8.1 mg/dL (8.5-10.1); CREATININE 0.9 mg/dL (0.7-1.3); POTASSIUM 3.7 mmol/L (3.5-5.1)
--- NOTE | 2019-12-23 11:12 | NUR ---
WOUND CARE F/U ASSESSED R BUTTOCK WOUND W/ MANAGING SUPERVISOR REAGAN, DTI, NO S/S INFECTION, NO DRAINAGE, SURROUNDING TISSUE INTACT, SEE PROCESS INTERVENTION FOR WOUND DETAILS, FECAL MANAGEMENT SYSTEM STILL IN PLACE, PT REMAINS ON VENT RECOMMENDATIONS; CONT CURRENT POC OF BETADINE, COVER W/ BORDER FOAM, PRESSURE RELIEF, OFF LOADING MANAGING SUPERVISOR AWARE
--- NOTE | 2019-12-23 15:20 | NUR ---
chart review. has trach and peg, cont need vent support and tf for nutritional support. brother sidney cont to visit. cm called [facility] [phone], no answer. will cont following as needed for dc needs.
--- NOTE | 2019-12-23 18:28 | NUR ---
BROTHER WHO IS DPOA VISITED WITH PATIENT FOR 3 HOURS. NO WEAN TODAY SECONDARY TO NO IMPROVEMENT ON CXR. LASIX AND POTASSIUM GIVEN WITH 3500ML OUTPUT. TOLERATING TUBE FEEDS. FECAL MANAGEMENT TUBE REPLACED BECAUSE OF DAMAGED INFLATION PORT. TOLERATED WELL. CONTINUES ON PROPOFOL AND PRECEDEX, AWAKES AND FOLLOWS COMMANDS, KING, NODS HEAD APPROPRIATELY.
[2019-12-23 22:12] LABS: MAGNESIUM 1.8 mg/dL (1.8-2.4)
--- NOTE | 2019-12-23 22:23 | NUR ---
This RN to bedside at 1900 this evening. Pt had a 6 run of vtach at 2123 tonight and coverted back into sinus rhythm. This RN assessed the patient, patient asymptomatic, S1 & S2 heard, pulses 2+. Called Anabell Coto NP and she ordered a K and Mg redraw. This RN also paged cardiology and spoke to Dr. Tian who was stone cleaner. Pyshician ordered a one time dose of 20mEq of potassium. Dose given and continueing to monitor patient.
[2019-12-24] VITALS (55 sets, daily range): BP systolic 75–129; BP diastolic 46–80
[2019-12-24 03:39] LABS: CALCIUM 8.1 mg/dL (8.5-10.1); CREATININE 0.7 mg/dL (0.7-1.3); POTASSIUM 3.9 mmol/L (3.5-5.1)
--- NOTE | 2019-12-24 17:13 | NUR ---
ASSUMMED CARE AT 1600 FROM VERA FOWLER. PATIENT ALERT AND RESPONDING APPROPIATELY TO SIMPLE COMMANDS, NODS TO YES AND NO QUESTIONS. TRACH SUCTIONED FOR LARGE AMT OF WHITE TO BEIGE SECRETIONS. DIURESED 900 ML AFTER LASIX. TOLERATING TUBE FEEDINGS WITH 30 ML OF RESIDUAL NOTED, MONITOR NSR WITH OCC PVC NOTED. WILL CONTINUE TO MONITOR. RABBI AT BEDSIDE.
--- NOTE | 2019-12-24 18:34 | NUR ---
STATUS UNCHANGED. WILL CONTINUE TO MONITOR.
[2019-12-25] VITALS (48 sets, daily range): BP systolic 94–146; BP diastolic 49–81
[2019-12-25 04:19] LABS: CALCIUM 8.6 mg/dL (8.5-10.1); CREATININE 0.8 mg/dL (0.7-1.3)
--- NOTE | 2019-12-25 06:18 | NUR ---
This RN to beside at 1900. Pt lightly sedated and follows commands and moves all extremities. Pt increasingly restless and this RN gave 2 PRN doses of Ativan. Adequate urine output, vital signs stable, gastric residuals WNL. Pt remains on propofol and precedex for vent management.
--- NOTE | 2019-12-25 09:45 | NUR ---
DR. CAZARES HERE. UPDATE GIVEN. REPORTED THAT PULM HAD STATED LUNGS WERE DOING WORSE. PLAN FOR LTAC IN AM.
--- NOTE | 2019-12-25 10:20 | NUR ---
dr. kimball here. update given. Plans for ltac in am. No new orders.
--- NOTE | 2019-12-25 10:35 | NUR ---
DR. MUNOZ CALLED RE, PT REMAINS HR 130S AND HYPOTENSIVE ONCE FLUID BOLUS ENDED. AWAITING CALL BACK.
--- NOTE | 2019-12-25 11:00 | NUR ---
dr teresa here. update given. states to ask cardiogy about pradaxa since it cannot be crushed. reported dr. kimball plan for ltac in am. dr kimball states she will communicate with dr. teresa personally.
--- NOTE | 2019-12-25 15:00 | NUR ---
Pt brother here. Update given. Emotional support given. States he wants to talk to DR. Thapa in am. Will pass along in report. Also states he is having trouble finding his brothers social security card.
[2019-12-26] VITALS (48 sets, daily range): BP systolic 97–159; BP diastolic 49–119
[2019-12-26 05:00] LABS: HEMATOCRIT 28.1 % (42.0-52.0); HEMOGLOBIN 9.3 gm/dL (14.0-18.0); MCH 29.6 pg (26.0-34.0); MCHC 33.3 g/dL (28.0-37.0); MCV 89.1 fL (80.0-100.0); RBC 3.15 mil/uL (4.50-6.00); RDW 15.1 % (10.5-14.5); WBC 7.7 thou/uL (4.0-11.0)
[2019-12-26 05:26] LABS: CALCIUM 8.4 mg/dL (8.5-10.1); POTASSIUM 4.9 mmol/L (3.5-5.1)
--- NOTE | 2019-12-26 11:12 | NUR ---
WOUND CARE F/U ASSESSED R BUTTOCK WOUND W/ STAFF RNS, WOUND W/ PINK VIABLE TISSUE EDGES, DARKEN BROWNISH CENTER OF WOUND BUT HEALING, NO S/S INFECTION, SCANT DRAINAGE, REMAINS ON VENT, NO OTHER SKIN BREAKDOWN, HEELS INTACT RECOMMENDATIONS; XEROFORM GAUZE, COVER W/ BORDER FOAM, M/W/F AND PRN STAFF RNS AWARE
--- NOTE | 2019-12-26 14:16 | NUR ---
chart review. pt from home alone. he has trach and peg with vent support and nutritional support. ang spoke with [facility] via phone call to see if they would even consider taking a pat for ltac service, per liaison they unable to accept pat pt at this current time. ang spoke with his brother sidney via phone call per brother his is very exhausting per sidney. active listening during phone call, not found any of his brother ss or id cards to help locate if raquel has any health insurance. ang called elmer at the [facility] [phone], cm just requested a call back. will cont following as needed for dc needs.
--- NOTE | 2019-12-26 19:17 | NUR ---
ASSUMED CARE AT 0700. FMS IN PLACE WITH MINIMAL OUTPUT. BOWEL REGIMEN IN PLACE. PATIENT ABDOMEN CONTINUES TO BE FIRM WITH ACTIVE BS. ADEQUATE UOP. VENTILATOR SETTINGS UNCHANGED. SEDATION TURNED OFF AROUND 0930. SHORTLY AFTER, PATIENT BECAME TACHYCARDIC WHICH WAS SUSTAINED THROUGHOUT THE DAY. ONE TIME METOPROLOL DOSE ORDERED. TUBE FEEDING IN PLACE @ 65 ML/HR OF VITAL HP. TUBE FEEDINGS TOLERATED WELL EVIDENCED BY RESIDUALS OF <10 THROUGHOUT THE DAY. THICK WHITE PLAQUE ON TONGUE NOTED AND PROVIDER AWARE AND UPDATED. PATIENT'S BROTHER VISITED AND WAS UPDATED AND EDUCATED ON THE PLAN OF CARE AND PATIENT CONDITION. Tmax OF 100.7. WOUND DRESSING CHANGED BY WOUND NURSE. PLAN FOR POSSIBLE DC TO LTAC TOMORROW. PATIENT PROGRESSING TOWARDS THE PLAN OF CARE.
[2019-12-27] VITALS (48 sets, daily range): BP systolic 107–202; BP diastolic 53–101
[2019-12-27 00:09] LABS: BE(vivo) 5.5 mmol/L (-2 to +3); HCO3 28.7 mmol/L (22.0-26.0); PCO2 36.9 mmHg (35.0-45.0); PO2 84.2 mmHg (80.0-100.0); pH 7.509 (7.360-7.450); sO2 97.1 % (92.0-98.0)
--- NOTE | 2019-12-27 03:22 | NUR ---
PT NOTED TO BE RESTLESS TURNING SELF BACK AND FORTH FROM LEFT SIDE TO RIGHT. HR 110s-120s, RR 30s-40s, BP 143/73, TEMP 99.8. ATIVAN 2MG IVP GIVEN AGITATION @1943. 2300-THICK FROTHY PINK SECRETIONS SUCTIONED, NOTED PATIENT SWEATING PROFUSELY WITH ELEVATED HR AND RR. L/S WORSE THAN INITIAL ASSESSMENTS. DR. GAUTHIER PAGED FOR POSIBLE FLUSH EDEMA. NEW ORDERS LASIX 80MG IVP X1, LABS, CXR,ABGs, AND INCREASE PEEP TO 8.ORDERS COMPLETED & RESULTS CALLED TO 0213-PT AWAKE SINCE SHIFT CHANGE. PULLED OUT PIV LEFT WRIST, BLEEDING FROM SITE, PRESSURE APPLIED, BATH GIVEN & LINEN CHANGED.
[2019-12-27 07:52] LABS: CREATININE 0.9 mg/dL (0.7-1.3); POTASSIUM 3.5 mmol/L (3.5-5.1)
--- NOTE | 2019-12-27 10:55 | EKG ---
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 : 1955 Requested By: Carson Spears Order Number: [id number] MD: Bala Tian Measurements Intervals [place] Rate: 115 P: 67 AK: 124 QRS: 61 QRSD: 81 T: 84 QT: 326 QTc: 451 Interpretive Statements Sinus tachycardia Left atrial enlargement Compared to ECG 12/19/2019 11:14:20 Ventricular premature complex(es) no longer present Aberrant conduction of supraventricular beat(s) no longer present T-wave abnormality no longer present Electronically Signed On 12-27-2019 10:55:13 CDT by Bala Tian [email or web address] <ELECTRONICALLY SIGNED> By: Bala Tian MD, [facility] 12/27/19 1055 Bala Tian MD, [facility] /EPI
--- NOTE | 2019-12-27 14:31 | NUR ---
ALLOWED BROTHER TO BRING SPECIAL PLANT INTO PT'S ROOM FOR ORIENTAL ORTHODOX RITUAL, THEN TAKING BACK OUT OF ICU.--VW
--- NOTE | 2019-12-27 19:15 | NUR ---
Pt restless today without apparent reason. Temp max was 100.0 orally. PT/OT started working with pt today on strengthening and ROM. Brother was at bedside this afternoon. Report given to JANETH Bowles assuming care.
[2019-12-28] VITALS (45 sets, daily range): BP systolic 88–124; BP diastolic 48–84
--- NOTE | 2019-12-28 06:13 | NUR ---
assumed pt care at 1900, pt is awake, alert, restless and follow simple commands, tmax of 100.9at 2340, tyl given with relieve, pt continuous to be restless despite given meds as per may, st on the monitor, adequate urine output, tf infusing at goal as ordered with residual less than 10cc, suctioned prn, fms in place with small stool, replaced potassium per protocol, rechecked this am, ammy picc in place, no acute distress noted, will pass on report
[2019-12-28 07:07] LABS: CALCIUM 8.7 mg/dL (8.5-10.1); CREATININE 0.8 mg/dL (0.7-1.3); POTASSIUM 3.8 mmol/L (3.5-5.1)
--- NOTE | 2019-12-28 09:34 | NUR ---
WOUND CARE FU; ASSESS R BUTTOCK WOUND W/ COUNTRY SINGER LAURA, WOUND HEALING, PINK VIABLE EGDES, CENTER OF WOUND STILL YELLOWISH BROWN [place], PT ALERT, COOPERATIVE, STILL INCONT STOOL, FECAL MANAGEMENT SYSTEM STILL IN PLACE, SEE PROCESS INTERVENTION FOR WOUND DETAILS, PHOTO TAKEN, HEELS INTACT, NO OTHER SKIN BREAKDOWN NOTED RECOMMENDATIONS; CONT CURRENT POC, XEROFORM, BORDER FOAM 3X WEEK AND PRN, TURN [id number] MINIMAL, PRESSURE RELIEF, OFF LOADING COUNTRY SINGER AWARE
--- NOTE | 2019-12-28 16:34 | NUR ---
vern with [facility] called, his brother sidney did not found pt ss card or want anyone look in this home to try and find it. sidney going to meet with a lady tomorrow to help with insurance. per vern he will not meet for medicaid rt he own property. will cont following as needed for dc needs.
[2019-12-29] VITALS (35 sets, daily range): BP systolic 90–117; BP diastolic 51–78
--- NOTE | 2019-12-29 04:11 | NUR ---
ASSUMED PT CARE AT 1900. VSS. PT ALERT AWAKE, FOLLOWING COMMANDS. PT ATTEMPTED TO WRITE BUT IS TOO WEAK SO COULDN'T MAKE UP THE WORDS. HE ALSO TRIED TO MOUTH WORDS. PT IS STABLE FOR NOW. HAD A GOOD NIGHT REST AND WILL CONTINUE TO MONITOR.
[2019-12-29 04:54] LABS: BE(vivo) 9.5 mmol/L (-2 to +3); HCO3 33.4 mmol/L (22.0-26.0); PCO2 42.4 mmHg (35.0-45.0); PO2 147.5 mmHg (80.0-100.0); pH 7.514 (7.360-7.450); sO2 99.1 % (92.0-98.0)
[2019-12-29 06:01] LABS: ABSOLUTE NEUTROPHILS 9.2 thou/uL (1.4-8.2); BASOPHILS 0.1 % (0.0-2.0); HEMATOCRIT 26.9 % (42.0-52.0); LYMPHOCYTES 10.9 % (24.0-44.0); MCH 29.8 pg (26.0-34.0); MCHC 33.5 g/dL (28.0-37.0); PLATELET COUNT 271 thou/uL (150-400); RBC 3.03 mil/uL (4.50-6.00); RDW 14.8 % (10.5-14.5); WBC 10.9 thou/uL (4.0-11.0)
[2019-12-29 06:06] LABS: ALBUMIN 2.4 g/dL (3.4-5.0); CREATININE 0.7 mg/dL (0.7-1.3); POTASSIUM 3.8 mmol/L (3.5-5.1); TOTAL BILIRUBIN 0.5 mg/dL (0.2-1.0); TOTAL PROTEIN 6.8 g/dL (6.4-8.2)
--- NOTE | 2019-12-29 16:48 | NUR ---
ASSUMED CARE OF PT AT 0700, PT IS ALERT AND IS A GCS OF 11. HE GOT TRANSISIONED TO A TRACH SHIELD AND IS TOLERATING IT. B/P SLIGHT LOW AND FACULTY PHYSICIAN AWARE. HE HAS BEEN AFIBRILE. PT WORKED WITH PT AND WAS ABLE TO SIT AT BEDSIDE. HE IS RESTING AT THIS TIMES AND BROTHER IS AT BEDSIDE.
[2019-12-30] VITALS (40 sets, daily range): BP systolic 85–112; BP diastolic 51–76
[2019-12-30 02:15] LABS: CALCIUM 8.8 mg/dL (8.5-10.1); CREATININE 0.7 mg/dL (0.7-1.3); POTASSIUM 3.7 mmol/L (3.5-5.1)
--- NOTE | 2019-12-30 05:18 | NUR ---
Assumed pt care at 1900.Pt is alert, but non-verbal. No sign of distress noted. Pt is laying in bed. Trach and peg tube present. Pt self repositions. Garcia in place. Fall precaution in place. Assessment completed and documented. Scheduled meds administered to pt. No acute events overnight. Continue to monitor pt. No further needs at this time.
--- NOTE | 2019-12-30 09:54 | NUR ---
st therapy was working with raquel and was able to get ss #. bedside nurse had ask him and he was not able to remember and said ask my brother. ss # sent to [facility] [employer] to check into insurance. will cont following as needed for dc needs.
--- NOTE | 2019-12-30 10:35 | NUR ---
WOUND CARE F/U; PT UP IN CHAIR, DISCUSSED WOUND STATUS W/ TECHNICAL SALES SUPPORT MANAGER LAURA, STATES SHE ALREADY CHANGED DRSG TO R BUTTOCK PRIOR TO GETTING UP IN CHAIR, PER NURSE STATES WOUND HEALING RECOMMENDATIONS; CONT CURRENT TX XEROFORM AND BORDER FOAM M/W/F AND PRN, CONT PRESSURE RELIEF, OFF LOADING TECHNICAL SALES SUPPORT MANAGER AWARE
--- NOTE | 2019-12-30 10:52 | NUR ---
If remains off propofol, adjust tube feed to new goal rate 70ml/hr
[2019-12-31 00:06] LABS: HBsAG-EMPLOYEE EXPOSURE Negative (Negative); HCV AB-EMPLOYEE EXPOSURE <0.1 (0.0-0.9)
[2019-12-31 01:00] VITALS: BP 105/62
--- NOTE | 2019-12-31 03:43 | NUR ---
ASSESSMENTS CHARTED, MEDS CHARTED GIVEN. PATIENT ARRRIVED FROM ICU AROUND 0100. PATIENT ALERT AND ORIENTED, SMILING AND GIVING THUMBS UP. SURESH IN PLACE, TUBE FEEDING GOING, WATER BOLUS AT 0400. WRITES MESSAGES AND MOUTHS WORDS. PLAN OF CARE IS TO BE HERE UNTIL THURSDAY WHEN HE WILL TRANSFER TO DISC PAD GRINDING MACHINE FEEDER CARE. FALL PRECAUTIONS IN PLACE DURING SHIFT.
[2019-12-31 04:00] VITALS: BP 102/59
[2019-12-31 08:10] VITALS: BP 106/68
[2019-12-31 11:55] VITALS: BP 104/65
--- NOTE | 2019-12-31 15:31 | NUR ---
ASSUMED CARE AT CHANGE OF SHIFT. ALERT X3, MOUTHS OR WRITES TO COMMUNICATE. TRACH RT ROUNDS FOR TX AND CARES. DR HENSON NEW ORDER TO PLACE ON VENT AT NIGHT SEE MISC ORDER. PEG TUB WITH NUTRITION RATE SET AT GOAL 65. DRESSING TO RIGHT BUTTOCK INTACT. WAITING PLACEMENT TO LTAC. BROTHER BEDSIDE. CLOSE TO NURSES STATION FOR OVERSIGHT.
[2019-12-31 15:48] VITALS: BP 114/68
--- NOTE | 2019-12-31 15:55 | NUR ---
pt assessed, brother at side, pt answers questions appropriately, says some discomfort in left side/rib area, but doesn't want any pain meds for it. reviwed plan of care with pt and brother, both verbalized understanding that they are waiting for placement.
[2019-12-31 19:20] VITALS: BP 111/64
[2020-01-01 00:30] VITALS: BP 112/67
[2020-01-01 03:30] VITALS: BP 111/77
[2020-01-01 08:10] VITALS: BP 113/70
[2020-01-01 12:00] VITALS: BP 117/81
--- NOTE | 2020-01-01 15:31 | NUR ---
PT WANTS TO DRINK, DR LI GAVE OK FOR SPEECH EVAL TO SEE IF PT CAN DRINK SAFELY, PT WAS ABLE TO STAND AT SIDE OF BED FOR ABOUT 15 SECONDS 4X, ABLE TO REPOSITION HIMSELF IN BED.
[2020-01-01 17:30] VITALS: BP 121/68
[2020-01-01 19:34] VITALS: BP 101/67
--- NOTE | 2020-01-02 03:13 | NUR ---
Assumed pt care at 1900. No sign of distress noted. Pt is laying in bed resting comfortably. Unable to verbalize needs but wanted a drink. Trach and peg tube in place. Pt initially place on the vent but pt kept taking it off. O2 saturation stable. Assessment completed and documented. Fall precaution in place. Scheduled meds administered to pt. Pt's daughter called. No acute events occurred overnight. Continue to monitor. Pt is stable through the night and slept. No further needs at this time.
[2020-01-02 03:50] VITALS: BP 109/67
--- NOTE | 2020-01-02 10:22 | NUR ---
received phone call from vern at the [facility] stated brother sidney has yoab assistant district attorney who know yoab affairs and health insurance information, his brother should be getting it, so glade he is doing better per vern. cm passed on to cm team.
--- NOTE | 2020-01-02 11:30 | NUR ---
WOUND CARE F/U; THE PATIENT HAS IMPROVED GREATLY SINCE ADMIT. THE PATIENT RESPONDS TO COMMANDS TO TURN WELL SEEMS TO UNDERSTAND MY COMMENTS AND COMMANDS. THE WOUND IS FRAGIALLY HEALED AT THIS TIME. THERE IS NO NEED TO FOLLOW. RECONSULT IF NECCESSARY. DISCUSSED WITH JANETH
--- NOTE | 2020-01-02 15:15 | NUR ---
patient cont with no insurance. CONSUELO Anshul is planning conferencce call with [place] medicaid office tomorrow. He has patients and correct spelling of name. Attempting medicaid application.
--- NOTE | 2020-01-02 16:50 | NUR ---
AWAKE, ALERT. FREQUENTLY ASKS FOR WATER TO DRINK. GIVEN SPONGE SOAKED IN ICE WATER. SR WITH SOME PVC'S PER TELE. FALL PRECAUTIONS IN PLACE; CLOSE TO NURSES' STATION. TF, MEDS AND FREE WATER PER PEG, RESIDUALS MINIMAL. BROTHER VISITS. WILL CONTINUE TO FOLLOW CLOSELY. LTAC PLACEMENT PLANNED.
[2020-01-02 21:11] VITALS: BP 117/64
--- NOTE | 2020-01-03 03:53 | NUR ---
Assumed pt care at 2315. Pt is alert and oriented. No sign of distress noted in pt. Denies any pain. Fall precaution in place. Scheduled meds administered. No acute events overnight. Continue to monitor no further needs at this time.
[2020-01-03 05:05] VITALS: BP 111/78
[2020-01-03 05:43] LABS: HEMATOCRIT 32.1 % (42.0-52.0); HEMOGLOBIN 10.6 gm/dL (14.0-18.0); MCH 29.7 pg (26.0-34.0); MCHC 32.9 g/dL (28.0-37.0); MCV 90.1 fL (80.0-100.0); RBC 3.56 mil/uL (4.50-6.00); RDW 15.9 % (10.5-14.5); WBC 9.6 thou/uL (4.0-11.0)
[2020-01-03 06:35] LABS: CREATININE 0.9 mg/dL (0.7-1.3); POTASSIUM 3.6 mmol/L (3.5-5.1)
[2020-01-03 07:30] VITALS: BP 121/73; BP 180/76
[2020-01-03 11:30] VITALS: BP 107/69
--- NOTE | 2020-01-03 14:07 | NUR ---
HAVE INFORMATION FROM THE REVENUE DEPT, [place] DIGITAL MARKETING MANAGER OFFICE, AND INFORMATION FROM PATIENT. [facility]UE CALL. [place] MEDICAID FORMS WILL BE FILLED OUT AND SENT TO [facility] AND [facility] AND ALL FORMS WILL BE SIGNED FOR MED ASSIST TO COMPLY
[2020-01-03 16:00] VITALS: BP 102/64; BP 102/78
--- NOTE | 2020-01-03 18:03 | NUR ---
ASSUMED CARE OF PT AT SHIFT CHANGE. ASSESSMENTS CHARTED. MEDS GIVEN PER MAY. PT A&OX4, NO C/O PAIN. PT ON RA ALL SHIFT, WITH NO SIGNS OF DISTRESS. SPEECH EVALUATED, RECOMMENDED SPEAKING VALVE. PT WORKED WITH PT/OT, SAT IN CHAIR FOR 3 HORUS. WILL CONTINUE TO MONITOR AND FOLLOW POC.
[2020-01-03 19:59] VITALS: BP 101/58
[2020-01-04 05:00] VITALS: BP 100/80
--- NOTE | 2020-01-04 07:43 | NUR ---
PATIENT IS PROGRESSING SLOWLY IN HIS CARE PLAN. VITAL SIGNS STABLE WITH PATIENT HAVING NO COMPLAINTS OF PAIN OR NAUSEA. FULLY ORIENTED, PATIENT IS ANXIOUS AND IMPULSIVE AT TIMES. BREATHING STABLE ON ROOM AIR AND THEN TRACH SHIELD WHILE SLEEPING EVIDENCED BY ASSESSMENTS AND SPOT OXYGENATION CHECKS. TUBE FEED PER ORDER WITH LOW RESIDUALS. CONTINUE PLAN OF CARE.
[2020-01-04 07:56] VITALS: BP 100/68
[2020-01-04 11:30] VITALS: BP 96/63
--- NOTE | 2020-01-04 14:21 | NUR ---
Nutrition: REC change tube feeds to Glucerna 1.2 at 60 mL/hr to more adequate meet kcal/protein needs now that pt out of ICU.
--- NOTE | 2020-01-04 14:51 | NUR ---
Spoke with [facility]. They are not acccepting of medicaid pending. Can fax referral but patient would need to be medicaid status. She reports patient currently with medicare [place].
[2020-01-04 16:07] VITALS: BP 109/54
--- NOTE | 2020-01-04 16:40 | NUR ---
ASSUMED CARE AT CHANGE OF SHIFT. ALERTX3 FORGETFULL, IMPULSIVED. PT DOES NOT DEMONSTRATE CALL LIGHT. CLOSE TO NURSES STATION. CONTINUES ON FEEDING TUBE 65RATE WITH NO RESIDULES, FLUSHES PER ORDER. ST ROUNDED C NOTES PT IS IMPROVING WITH SPEACH AND TOLERATING ICE CHIPS. STAND BY ASSIST. WAITING FOR SNF PLACEMENT. BROTHER BEDSIDE. FALL PRECAUTIONS IN PLACE.
--- NOTE | 2020-01-04 18:45 | NUR ---
ASSUMED CARE AT CHANGE OF SHIFT. ALERT TO SELF AND SITUATION, ABLE TO HAVE SHORT CONVERSTIONS WITH AND WITHOUT SPEAKING VALVE. ICE CHIPS OKAY. PLANS FOR VIDEO SWOLLOW TOMORROW PER ST. PT ANXIOUS AND MOVES FROM BED TO CHAIR. REINFORCING TO CALL FOR ASSISTANCE. FALL PRECAUTIONS IN PLACE. DEMONSTRATES CALL LIGHT. PERSONAL ITEMS IN REACH.
[2020-01-04 19:12] VITALS: BP 107/61
--- NOTE | 2020-01-04 22:59 | NUR ---
Upon reported at shift change, it was noted that patient was meant to dischage home with hopsice.But right 1924, it was noticed that patient's heart rate was in the 30's RN went to the room and the patient had pink frothy sputum. Pulse was checked and patient was pronounced by 2 RNs. Family notifed, MTN notified and attending physician Dr Thapa notified.Pt is to be transferred to the [facility] pending organ donation. home picked by family. Pt is to be transferred to the [facility]. Hospice nurse notified as well.
--- NOTE | 2020-01-05 03:38 | NUR ---
Assumed pt care at 2300. Pt sitting at the side of the bed. No sign of distress noted in pt. Denies any pain. No acute events noted overnight. Continue to monitor. No further needs at this time.
[2020-01-05 04:15] VITALS: BP 105/65
[2020-01-05 08:41] VITALS: BP 93/57
[2020-01-05 10:41] LABS: HEMATOCRIT 31.8 % (42.0-52.0); HEMOGLOBIN 10.4 gm/dL (14.0-18.0); MCH 29.3 pg (26.0-34.0); MCHC 32.8 g/dL (28.0-37.0); MCV 89.3 fL (80.0-100.0); RBC 3.56 mil/uL (4.50-6.00); RDW 16.2 % (10.5-14.5); WBC 11.7 thou/uL (4.0-11.0)
[2020-01-05 10:54] LABS: CALCIUM 8.5 mg/dL (8.5-10.1); CREATININE 0.7 mg/dL (0.7-1.3); POTASSIUM 4.5 mmol/L (3.5-5.1)
--- NOTE | 2020-01-05 10:58 | NUR ---
Case discussed in team rounds. Pt now on room air and getting PM valve for trach per ST. Acute rehab eval may be a better option than LTAC. [facility] consulted. Will follow.
[2020-01-05 11:19] VITALS: BP 99/71
--- NOTE | 2020-01-05 11:42 | NUR ---
WOUND CARE F/U; THE BUTTOCK PRESSURE INJURY WAS AAAESSED AND HAS SOME NON VIABLE TISSUE ITH THE WOUND BED. STILL THIS WOUND IS MUCH IMPROVED. THE PATIENT UNDERSTANDS AND FOLLOWS DIRECTIONS. NO S/S OF INFECTION OR PAIN. RECOMMENDSATIONS; CHANGE TO THERAHONEY FOR A SHORT TIME TO ENCOURAGE AUTOLYTIC DEBRIDMENT. DISCUSSED WITH JANETH
--- NOTE | 2020-01-05 16:04 | NUR ---
ASSUMED CARE AT CHANGE OF SHIFT. ALERT X3, FORGETFUL, DROWSY/SLEEPY, TRACH SHEILD IN PLACE WITH ROOM AIR. DENIES SOB, GRAYSON CHEST PAIN. TOLERATING FEEDING TUBE. VSS. CONTINUES TO PROGRESS. POSSIBLE REHAB [facility]. FALL PRECAUTIONS IN PLACE.
[2020-01-05 19:25] VITALS: BP 99/66
--- NOTE | 2020-01-06 04:14 | NUR ---
Assumed pt care at 1900. No sign of distress noted in pt. Pt is alert and awake. No sign of distress noted in pt. Denies any pain. Fall precaution in place. Assessment completed and documented. Scheduled meds administered to pt via peg tube. No acute events overnight. Pending placement. Continue to monitor no further needs at this time.
[2020-01-06 04:29] VITALS: BP 98/64
[2020-01-06 11:35] VITALS: BP 99/58
--- NOTE | 2020-01-06 13:42 | NUR ---
Pt accepted to [facility] acute rehab when bed available. Possible bed on Thursday or Thursday. Pt's mo medicaid application is pending and cm sales assistants and salespersons Deon is working with the pt on his SS disability application. Brother visiting daily. Will follow.
[2020-01-06 16:30] VITALS: BP 102/71
[2020-01-06 16:51] LABS: CALCIUM 8.6 mg/dL (8.5-10.1); CREATININE 0.9 mg/dL (0.7-1.3)
--- NOTE | 2020-01-06 17:03 | NUR ---
PATIENT WAS SEEN FOR REHAB CONSULT AND AT THIS TIME IS A CANDIDATE FOR ACUTE REHAB SERVICES. NO BED AVAILABLE ON 5N THIS DATE OR THROUGH WEEKEND. ANTICIPATE POSSIBLE BED AVAILABLE 01/10/20. WILL CONTINUE TO FOLLOW.
--- NOTE | 2020-01-06 18:21 | NUR ---
RECEIVED PT'S CARE AROUND 0710; PT. ON BED; RESTING WITH EYES CLOSED; EQUAL CHEST RISING NOTICED; O2 SAT ABOVE 90%; SR ON THE MONITOR; DURING AM ASSESSMENT PT. AOX4; FORGETFUL; AM MEDICATIONS GIVEN; NO C/O PAIN; EDUCATED ABOUT CALLING BEFORE GETTING UP FROM BED; NO ANSWER BACK; NEEDED TO BE REMAINED ABOUT IT THROUGH THE DAY SEVERAL TIMES; EDUCATED ABOUT THE IMPORTANCE OF WAITING BEFORE GETTING UP FROM BED DUE TO FEEDING & AVOIDING TO PULL FEEDING TUBE; D/C SURESH AT 1140; PT. ABLE TO VOID; 5ML RESIDUAL X3 THROUGH THE DAY; MONITORING; ASSESSMENT CHARGED; FOLLOWING POC; WILL PASS ON REPORT;
[2020-01-06 19:30] VITALS: BP 103/72
[2020-01-07 03:50] VITALS: BP 104/68
--- NOTE | 2020-01-07 05:22 | NUR ---
PATIENT HAS BEEN RESTING AND SLEPT MOST OF THE NIGHT. TOLERATING TUBE FEEDINGS. GETS UP WITH ASSISTANCE X1. PATIENT NPO. NO PAIN OR SOA. PATIENT ABLE TO TURN SELF. WORKING ON PLAN OF CARE FOR THE NIGHT. CONTINUING TO ASSESS ACCORDING TO CARE PLAN.
[2020-01-07 06:38] LABS: CALCIUM 9.1 mg/dL (8.5-10.1); CREATININE 0.8 mg/dL (0.7-1.3); MAGNESIUM 1.9 mg/dL (1.8-2.4); POTASSIUM 3.7 mmol/L (3.5-5.1)
[2020-01-07 08:15] VITALS: BP 108/72
[2020-01-07 15:22] VITALS: BP 101/66
--- NOTE | 2020-01-07 18:07 | NUR ---
ASSESSMENT CHARTED. PT ALERT AND ORIENTED. VSS. TUBE FEEDING INFUSING ORDERED. UP IN THE CHAIR THIS SHIFT. NO RESPIRATORY DISTRESS NOTED. PT PROGRESSING WELL TOWARDS DISCHARGE GOAL.
[2020-01-07 19:20] VITALS: BP 103/67
[2020-01-08 03:38] VITALS: BP 104/67
--- NOTE | 2020-01-08 07:18 | NUR ---
AOX4/IMPULSIVE AT TIMES; STEADY UP TO BATHROOM WITH ASSIST X1 AND WALKER; NO C/O OF SOB OR PAIN; SLEPT QUIETLY THROUGHOUT MOST OF THE NOC; TRACH PATENT AND IN PLACE WITH DRESSING CHANGED; SCANT RESIDUALS WITH CONTINUOUS FEED AND Q4H FLUSHES AND PEG TUBE IN PLACE; PATIENT PROGRESSING WELL TOWARDS POC AND DISCHARGE GOALS; WILL CONTINUE TO MONITOR.
[2020-01-08 07:26] VITALS: BP 109/60
[2020-01-08 15:19] VITALS: BP 103/66
--- NOTE | 2020-01-08 16:22 | NUR ---
ASSESSMENT CHARTED. PT ALERT AND ORIENTED. PLEASANT AND COOPERATIVE WITH CARES. N TUBE FEEDING PATENT AND INFUSING ORDERED. TRACH INTACT. NO CARDIAC OR RESPIRATORY DISTRESS NOTED. BROTHER UPDATED ON PT'S PROGRESS. NO CONCERNS AT THIS TIME. PROGRESSING WELL TOWARDS DISCHARGE GOAL.
--- NOTE | 2020-01-08 18:35 | NUR ---
Pt transferred from CCU approx 1800. A&ox4. Tube feeding infusing. Flushed with 250cc water. Meds given through tube. q6h accu check. Trach in place. Call light within reach. Will give report to og FOWLER.
[2020-01-08 20:18] VITALS: BP 97/63
--- NOTE | 2020-01-09 01:40 | NUR ---
ASSESSED AT START OF SHIFT. PT A&OX4. PEG TUBE INTACT WITH CONTINUOS FEEDING. PT UP WITH SBA TO THE BATHROOM INSTRUCTED TO CALL. EVENING MEDS GIVEN VIA TUBE. BSG CHECKED WITH COVERAGE. Q4 250CC WATER FLUSHES. FALL PREC IN PLACE AND CALL LIGHT IN REACH WILL CONT TO MONITOR.
[2020-01-09 05:14] VITALS: BP 105/73
[2020-01-09 07:55] VITALS: BP 94/63
--- NOTE | 2020-01-09 09:31 | NUR ---
WOUND CARE F/U; ASSESSED R BUTTOCK WOUND W/ PERCUSSION TUNER KIA, WOUND HEALING, MUCH SMALLER IN SIDE, PINK VIABLE EDGES, CENTER OF WOUND W/ YELLOW SLOUGH, SEE PROCESS INTERVENTION FOR WOUND DETAILS, NO S/S INFECTION, NO ODOR, ALERT AND COOPERATIVE, LOW AIR LOSS PUMP REMAINS ON BED RECOMMENDATIONS CONT CURRENT POC, THERAHONEY TO WOUND AND COVER W/ BORDER FOAM 3X WEEK, CONT LOW AIR LOSS PUMP TO BED, ENCOURAGE TO NOT SIT LONG PERIODS, OFF LOADING PRESSURE RELIEF PERCUSSION TUNER AWARE
--- NOTE | 2020-01-09 09:36 | NUR ---
Pt needs formula change since no longer in ICU. DC vital high protein Rec : 1. jevity 1.5, 5 cans bolus per day (glucerna is not available in 8 oz individual cartons at this time) and flush 240ml after each bolus OR 2. glucerna 1.2 (large bottle) at 60ml/hr
--- NOTE | 2020-01-09 12:54 | NUR ---
ON-GOING ASSESSMENT: CM REVIEWED CHART. PT IS PROGRESSING TOWARDS DISCHARGE GOALS. CM SPOKE WITH [facility] LIASON WHO REPORTS THAT THEY WILL NOT HAVE A BED OPEN UNTIL TOMORROW 01/09. PLANS ARE FOR PATIENT TO GO TO [facility] ACUTE REHAB TOMORROW. CM MET WITH PATIENT AT THE BEDSIDE AND HE IS AGREEABLE WITH THE PLAN. CM WILL CONTINUE TO FOLLOW TO ASSIST NEEDED.
[2020-01-09 16:50] VITALS: BP 112/61
[2020-01-09 19:42] VITALS: BP 111/74
--- NOTE | 2020-01-10 03:33 | NUR ---
ASSESSED AT START OF SHIFT. PT A&OX4. UP ADLIB. TOLERATING DIET. DENIES PAIN, N/V. IV INTACT AND SL. AMBULATING TO THE BATHROOM. TRACH INTACT AND PEGTUBE IN PLACE. CALL LIGHT AT REACH. ANTICIPATING D/C TOMORROW WILL CONT WITH POC TILL EOS.
[2020-01-10 04:05] VITALS: BP 102/69
[2020-01-10 07:56] VITALS: BP 106/69
[2020-01-10] MEDS ORDERED: CLOPIDOGREL75 MG PER TUBE (08:58)
[2020-01-10] MEDS ORDERED: NYSTATIN100000 UNI SW&SWALLOW (08:58)
[2020-01-10] MEDS ORDERED: LIPITOR40 MG PER TUBE (08:58)
[2020-01-10] MEDS ORDERED: RISPERIDONE1 MG/1 M2 PO (08:59)
[2020-01-10] MEDS ORDERED: HYDROCODON-ACE1 EAC7 PO (08:59)
[2020-01-10] MEDS ORDERED: SPIRONOLACTONE25 M1 PER TUBE (08:59)
[2020-01-10] MEDS ORDERED: METOPROLOL TART25 MG PER TUBE (08:59)
[2020-01-10] MEDS ORDERED: PEPCID20 MG PER TUBE (09:00)
[2020-01-10] MEDS ORDERED: PEDIA-LAX50 MG/15 M PER TUBE (09:00)
[2020-01-10] MEDS ORDERED: TORSEMIDE20 MG PO (09:00)
[2020-01-10] MEDS ORDERED: LANTUS SUBQ (09:00)
[2020-01-10] MEDS ORDERED: ENOXAPARIN60 MG/0.1 SUBQ (09:07)
--- NOTE | 2020-01-10 11:00 | NUR ---
on-going assessment: CM REVIEWED CHART AND SPOKE WITH ATTENDING WHO HAS ORDERS FOR PATIENT TO DISCHARGE TO . CM SPOKE WITH LIASON REGARDING PULM CONSULTING DR. SWANN FOR POSSIBLE TRACH REMOVAL. CM REACHED OUT TO DR SWANN WHO REPORTS HE WILL NOT BE BACK UNTIL TOMORROW 01/10. CM NOTIFIED BEDSIDE RN AND ATTENDING. PT WILL REMAIN ON ACUTE CARE UNTIL DETERMINATION IF TRACH WILL BE REMOVED. CM WILL CONTINUE TO FOLLOW TO ASSIST NEEDED.
--- NOTE | 2020-01-10 11:44 | NUR ---
PT CARE ASSUMED AT 0700.A&Ox4. PT SITTING UP IN THE RECLINER. WOUNDCARE MO,WE,FR. LOW AIRLOSS PUMP. TAKES PILLS WHOLE WITH WATER. BS 231 10 UNITS OF LANTUS GIVEN. IV PATENT WITH NO REDNESS OR EDEMA, SALINE LOCKED. TRACH IN PLACE WITH GREEN TOP ON. PT COMPLAINING OF COUGHING. INFORMED. RESLON PEARLS ORDERED. UP INDEPENDENTLY IN THE ROOM. PEGTUBE IN PLACE. PT SCHEDULED TO HAVE TRACH REMOVED BEFORE TRANSFERRING TO REHAB. FALL PROTOCOL IN PLACE. CALL LIGHT IN REACH. BROTHER BRINGS FOOD IN FOR PATIENT. WILL CONTINUE TO MONITOR.
--- NOTE | 2020-01-10 16:08 | NUR ---
PLAN FOR Pt TO ADMIT TO [facility] REHAB UNIT TODAY. PER MULTIPLE DISCUSSIONS WITH VARIOUS MEMBERS OF CARE TEAM, PLAN WILL BE TO HAVE TRACH REMOVED WHEN Pt ON 5N REHAB UNIT AT SOME POINT. TRACH TO REMAIN IN AT THIS TIME. THANK YOU FOR THIS REFERRAL.
--- NOTE | 2020-01-11 12:04 | NUR ---
Late documentation from 01/10: provided diet education on heart healthy, diabetic guidelines prior to pts discharge to inpatient [facility] rehab unit. Pt generally eats very healthy, mostly fish, fruits/vegetables. No significant amounts of added sugars. Encouraged pt to continue these good eating habits after discharge. Pt repetively asks "why did this happen if I eat well?. Encouragement and support offered. Encouraged continued communication with physician. Also, Kosher diet accomidations are being discussed with Workers Compensation Paralegal and other staff prior to admit to rehab.
== END 2020-01-10 16:02 | DRG 3 ==
LOC: ER 17:34 → EDBD 19:14 → 2N 19:14 → ICU 19:14 → EROBS 19:14 → ICU 19:51 → 2N 12-31 01:00 → 4S 01-08 17:53
PROVIDERS: Emergency Medicine; Hospitalist; Internal Medicine; Internal Medicine Pulmonary Disease; Nurse Practitioner Family; Pediatrics; Physician Assistant; ADMIT Internal Medicine; ATTEND Internal Medicine
PROC: 02713EZ Dilation of Coronary Artery, Two Arteries with Two Intraluminal Devices, Percutaneous Approach (ICD-10-PCS; principal; 2019-11-28)
PROC: B211YZZ Fluoroscopy of Multiple Coronary Arteries using Other Contrast (ICD-10-PCS; principal; 2019-11-28)
PROC: 5A1955Z Respiratory Ventilation, Greater than 96 Consecutive Hours (ICD-10-PCS; principal; 2019-11-28)
PROC: B215YZZ Fluoroscopy of Left Heart using Other Contrast (ICD-10-PCS; principal; 2019-11-28)
PROC: 4A023N7 Measurement of Cardiac Sampling and Pressure, Left Heart, Percutaneous Approach (ICD-10-PCS; principal; 2019-11-28)
PROC: 03HB33Z Insertion of Infusion Device into Right Radial Artery, Percutaneous Approach (ICD-10-PCS; 2019-12-01)
PROC: 05HY33Z Insertion of Infusion Device into Upper Vein, Percutaneous Approach (ICD-10-PCS; 2019-12-01)
PROC: 0B110F4 Bypass Trachea to Cutaneous with Tracheostomy Device, Open Approach (ICD-10-PCS; 2019-12-16)
PROC: 0BH17EZ Insertion of Endotracheal Airway into Trachea, Via Natural or Artificial Opening (ICD-10-PCS; 2019-12-16)
PROC: 0DH68UZ Insertion of Feeding Device into Stomach, Via Natural or Artificial Opening Endoscopic (ICD-10-PCS; 2019-12-16)
PROC: 0BJ08ZZ Inspection of Tracheobronchial Tree, Via Natural or Artificial Opening Endoscopic (ICD-10-PCS; 2019-12-19)
DX: I21.4 Non-ST elevation (NSTEMI) myocardial infarction (principal); J96.01 Acute respiratory failure with hypoxia; G92 Toxic encephalopathy; I50.23 Acute on chronic systolic (congestive) heart failure; J69.0 Pneumonitis due to inhalation of food and vomit; I26.99 Other pulmonary embolism without acute cor pulmonale; J15.0 Pneumonia due to Klebsiella pneumoniae; E87.0 Hyperosmolality and hypernatremia; K56.7 Ileus, unspecified; E46 Unspecified protein-calorie malnutrition; I47.1 Supraventricular tachycardia; G72.81 Critical illness myopathy; E78.5 Hyperlipidemia, unspecified; I11.0 Hypertensive heart disease with heart failure; I25.10 Atherosclerotic heart disease of native coronary artery without angina pectoris; R74.01 Elevation of levels of liver transaminase levels; D64.9 Anemia, unspecified; I95.9 Hypotension, unspecified; K59.00 Constipation, unspecified; E87.6 Hypokalemia; I25.5 Ischemic cardiomyopathy; Z20.828 Contact with and (suspected) exposure to other viral communicable diseases; Z68.23 Body mass index [BMI] 23.0-23.9, adult; Z79.82 Long term (current) use of aspirin; Z79.899 Other long term (current) drug therapy
CPT/HCPCS: 10078; 10081; 10102; 10203; 27000; 50101; 50386; 50403; 50550; 56525; 62110; 62900; 85026

== ENCOUNTER 2020-01-10 10:32 | Inpatient (IN) | payer MEDICAID ==
[~2020-01-10] VITALS: Ht 162.6 cm; Wt 62.1 kg
--- NOTE | ~2020-01-10 | HC ---
[facility] [place] [address] CONSULTATION Name: MALLY CURIEL Room #: 501-A [facility] IN .R.#: [id number] Admission: 01/10/20 Attend Phys: Mode Spivey MD Discharge: Date of : 55 Report #: [id number] THIS REPORT FOR: cc: SHANDRA - Yudy family physician/PCP SHANDRA - No family physician/PCP Niles Herron PhD ~ DATE OF SERVICE: 01/16/2020 NEUROBEHAVIORAL STATUS EXAM ATTENDING PHYSICIAN: Mode Spivey MD UTILITY AGENT: Niles Herron, PhD CLINICAL PRESENTATION: The patient is a 64-year-old male originally admitted to [facility] with chest pain. He went to the laborer airport maintenance and had a non-ST elevation myocardial infarction with stents placed. The patient was intubated on 12/01/2019 for respiratory failure and unable to be weaned off the ventilator until 12/16/2019. A CT scan revealed a possible right lower lobe pneumonia. His assessment on admission to the rehabilitation unit is critical illness myopathy, question of acute toxic encephalopathy, non-ST elevation myocardial infarction, hypoxic respiratory failure, status post trach with prolonged mechanical ventilation and PEG tube placement, severe ischemic cardiomyopathy with ejection fraction of 20-25%, hyperlipidemia and Klebsiella pneumonia. A complete description of his medical condition and history can be found in his medical record. Neuropsychological consultation was requested to provide assistance in the assessment of cognitive and emotional status and to provide recommendations and services. Prior to this most recent admission, the patient was living independently, doing home remodeling. He reports being . He has one child in [place]. The patient is a college graduate. He indicates having been independent with instrumental activities of daily living including driving prior to this most recent medical event. There is no history of alcohol/drug abuse. TECHNIQUES UTILIZED: Clinical interview, review of medical records, staff consultation and behavioral observation, mini mental status exam 2 standard version, verbal fluency assessment and abstract reasoning test. EXAMINATION AND FINDINGS: The patient was alert and cooperative with the assessment. There is no evidence of aphasia. Thoughts are logical and goal oriented. No evidence of thought disorder. He reports difficulty with sleep [facility] [address] [place] [address] CONSULTATION Name: MALLY CURIEL Room #: 501-A [facility] IN [facility]#: [id number] Admission: 01/10/20 Attend Phys: Mode Spivey MD Discharge: Date of : 55 Report #: [id number] and appetite. Mild degree of anxiety. He does not report problems with memory, word finding or concentration. Performance on the MMSE 2 brief version is extremely low with a raw score of 11/16. He was 3/3 for initial registration, 3/5 for orientation of time, 2/[address] and 3/3 for immediate recall of 3 items after a brief time delay and distraction. Impairment is noted on the MMSE 2 standard version with a raw score of 25/30 with a T score of 40 and percentile rank of 16. The patient was 5/5 for serial sevens, 2/2 for naming, 1/1 for repetition, 3/3 for auditory comprehension. He could read and follow a single command and dictate a sentence. Letter fluency was in the borderline range with a raw score of 13, T score of 29, percentile rank at 2. Category fluency was a raw score 25, T score of 22, percentile rank of less than 1. Overall, verbal fluency was a raw score of 38, T score 24, percentile rank of less than 1. Brief abstract reasoning test was 3/8. The patient is presenting with impairment in verbal fluency and higher level executive functioning that included abstract reasoning. Variability in attention and orientation and memory is likely. DIAGNOSTIC IMPRESSION: 1. Neurocognitive disorder -- extent to be determined, likely in the moderate range. 2. Adjustment disorder with anxious mood. RECOMMENDATIONS: The patient will likely benefit from continued speech therapy to assist with development of compensatory strategies for variability in cognition. Driving should be evaluated more carefully before return to complete independence. The patient would likely benefit from increased assistance in the management of medication, finances and nutrition to ensure safety upon his return home. He has a supportive brother. However, the brother lives in [place]. Arranging for increased environmental supports upon his discharge will be helpful in overall adjustment. Thank you very much for allowing me to provide the consultation on this patient. By: [id number] Niles Herron, PhD /nt
[~2020-01-10 10:32] MED LIST: CLOPIDOGREL75 MG PER TUBE; ENOXAPARIN60 MG/0.1 SUBQ; HYDROCODON-ACE1 EAC7 PO; LANTUS SUBQ; LIPITOR40 MG PER TUBE; METOPROLOL TART25 MG PER TUBE; NYSTATIN100000 UNI SW&SWALLOW; PEDIA-LAX50 MG/15 M PER TUBE; PEPCID20 MG PER TUBE; RISPERIDONE1 MG/1 M2 PO; SPIRONOLACTONE25 M1 PER TUBE; TORSEMIDE20 MG PO
--- NOTE | 2020-01-10 17:11 | NUR ---
CONSULT CALLED AT THIS TIME FOR DR.NEAL SNELL.
--- NOTE | 2020-01-10 17:24 | NUR ---
chart review. he new to acute rehab this afternoon. unable to visit with yoab rt bedside nurse working with him. pt lived alone prior to hospital. independent. no dme or rehab in past. pt brother sidney came in from [place] to be with him and brother will go back to [place]. possible going to have trach removed. will cont following as needed for dc needs.
[2020-01-10 19:00] VITALS: BP 110/72
[2020-01-10 19:42] VITALS: BP 104/72
--- NOTE | 2020-01-10 20:22 | NUR ---
ASSUMED CARE AT 1630. NEW ADMISSION. CAME IN VIA WC WITH BROTHER AND HOSPITAL PERSONNEL. PT IS ALERT AND ORIENTATED. DENIES ANY PAIN. TRACH INPLCE WITH SPEAKING VALVE. PT BROTHER BROUGHT KOSHER FOOD AND PT WAS EATING HIS MEAL. ROOM ORIENTATION GIVEN. CONSENT SIGND. ASSESSMENT DONE. VSS DONE. PT EDUCATED TO CALL WHEN AMBULATING UNTIL EVAL BY THERAPY FOR BEING MOD I. CALL LIGHT WITHIN REACH. NO OTHER CONCERNS.
[2020-01-11 05:48] LABS: HEMOGLOBIN 9.5 gm/dL (14.0-18.0); MCH 29.8 pg (26.0-34.0); MCHC 33.9 g/dL (28.0-37.0); RBC 3.18 mil/uL (4.50-6.00); RDW 16.2 % (10.5-14.5); WBC 8.7 thou/uL (4.0-11.0)
[2020-01-11 06:47] LABS: CALCIUM 8.5 mg/dL (8.5-10.1); CREATININE 0.9 mg/dL (0.7-1.3); POTASSIUM 3.6 mmol/L (3.5-5.1)
[2020-01-11 08:00] VITALS: BP 100/69
--- NOTE | 2020-01-11 11:45 | NUR ---
PATIENT WAS IN BED AWAKE WHEN CARE ASSUMED AT 0700HRS. PATIENT IS ALERT, AND ORIENTED X 3-4 ABLE TO VOICE NEED. PATIENT TOOK ALL MORNING MEDICATION WHOLE WITHOUT DIFFICULTY. BLOOD SUGAR THIS MORNING WAS 150, PATIENT HAS SCHEDULE LANTUS INSULIN, PATIENT DID NOT EAT BREAKFAST, STATES "MY BROTHER WILL BRING MY FOOD" EQUIPMENT SERVICE LEAD NOTIFIED, SHE SATES NOT TO GIVE LANTUS THIS MORNING. TRACH REMOVED BY DR. PINTO THIS MORNING, PATIENT BREATHING АНДРЕЙ, NO SIGN OF RESPIRATORY DISTRESS NOTED AT THIS TIME. PATIENT IS UP, AND AMBLATES WITH THERAPY. PATIENT ATTEMPTS TO WALK IN ROOM WITHOUT CALLING FOR HELP, HE IS ENCOURAGED TO CALL FOR HELP BEFORE GETTING IN, AND OUT OF BED. PULMONARY CONSULT COMPLETED BY THIS FOOD ORDER EXPEDITER, SPOKE WITH STAFF (ABRAHAN), CONSULT ON AUTOMATED MANUFACTURING INSTRUCTOR ALSO COMPLETED, SPOKE WITH STAFF (KATHY). PATIENT DENIES HAVING PHYSICAL PAIN. SALINE LOCK TO RIGHT ARM IN PLACE. NO SIGN OF ACUTE DISTRESS NOTED AT THIS TIME, CALL LIGHT IN REACH, WILL MONITOR FOR SAFETY.
[2020-01-11 19:59] VITALS: BP 101/70
--- NOTE | 2020-01-11 21:12 | NUR ---
ASSUMED CARE OF PT AT 1900. PT IS A&OX4. IS ON ROOM AIR. IS STABLE. DENIES PAIN & CONCERNS. IS UP MOD I IN ROOM. HOURLY ROUNDING CONTINUED THIS SHIFT. LABS & VITALS REVIEWED. DRSG TO NECK DRY & INTACT. PT REFUSED TO ALLOW THIS NURSE TO ASSESS SACRAL ULCER. PT ALSO REFUSED HS ACCU CHECK. EDUCATION PROVIDED. PT IS CURRENTLY IN ROOM WATCHING TV ON THE COUCH. CALL LIGHT WITHIN REACH. WILL CONTINUE TO MONITOR.
[2020-01-12 08:00] VITALS: BP 106/60
--- NOTE | 2020-01-12 11:04 | NUR ---
ang notified by speech and yoab brother sidney was supposed to be bringing in microwave for kosher food. maintenance will have to look at it before can be used. then yoab can use it with assistance. ang spoke with bedside nurse, microwave is not here yet. superintendent overhead distribution choice form on chart. he is currently pending medicaid.
--- NOTE | 2020-01-12 11:46 | NUR ---
WOUND CARE F/U; THE NURSE CONSULTED WOUND CARE FOR RECOMMENDATIONS FOR THE TRACH INSCION SITE. THE AREA WAS ASSESSED AND THE INSICION IS STABLE. THE BUTTOCKS WOUND HAS FIBRINOUS TISSUE. NO S/S OF INFECTION SEEN. RECOMMENDATIONS; 1-THERAHONEY, COVER WITH A BORDER FOAM M/W/F PRN 2-XEROFORM GAUZE TO THE TRACH INSCISION SITE COVERED WITH A BORDERED FOAM M/W/F PRN DISCUSSED WITH RN
--- NOTE | 2020-01-12 12:38 | NUR ---
RD consult received to review [facility] meal plan for heart healthy, carb control diet. RD provided this education on 01/09 with pt who already makes very healthy choices at home with fish, fruits, vegetables, olive oil. Pt has diet education materials. Team all working diligently with pt regarding strict Kosher diet-brother supposed to bring in own microwave, meals, snacks. Dietary staff will provide packaged Kosher items, and aware may need to purchase microwavable dinners from outside source. There is also a vegan, Kosher Ensure Plant based supplement which can be purchased if pt agrees to drink. Dietary staff looking into availability of this supplement.
--- NOTE | 2020-01-12 12:57 | NUR ---
ASSUMED CARES AT 0700. PT AWAKE,ALERT AND ORIENTED*4. DENIES PAIN. VITALS REMAIN STABLE. TRACH SITE CLEANED AND DRESSING CHANGED, SUTURES REMAIN STABLE. PEG TUBE REMAINS INTACT, PEG SITE CLEANED, REMAINS NYDIA. SACRAL WOUND CLEANED AND DRESSING CHANGED. PT REPORTED HEMATURIA, HOSPITALIST AWARE AND ORDERS RECEIVED. TO COLLECT UA. PT UP WITH SBA, GB AND TOLERATED WELL. Q1H VISUAL CHECKS. CALL LIGHT WITHIN REACH. FALL PRECAUTIONS IN PLACE
[2020-01-12 16:26] LABS: URINE BILIRUBIN NEGATIVE (Negative); URINE BLOOD 2+ (Negative); URINE CLARITY CLEAR; URINE COLOR YELLOW; URINE GLUCOSE-RANDOM* NEGATIVE (Negative); URINE KETONES NEGATIVE (Negative); URINE LEUKOCYTES-REFLEX NEGATIVE (Negative); URINE NITRITE-REFLEX NEGATIVE (Negative); URINE PROTEIN (DIPSTICK) NEGATIVE (Negative); URINE UROBILINOGEN 0.2 E.U./dl (0.2-1.0)
[2020-01-12 16:37] LABS: BACTERIA-REFLEX 1-9 Few /HPF (None Seen); SQUAMOUS None Seen /LPF (0-3)
[2020-01-12 16:38] LABS: CASTS None Seen /LPF (None Seen); CRYSTALS None Seen /LPF (None Seen); URINE WBC-REFLEX None Seen /HPF (0-5)
[2020-01-12 19:27] VITALS: BP 112/74
--- NOTE | 2020-01-12 23:30 | NUR ---
CHECKED TRACH INCISION SITE WHICH IS CLOSED WITH SCANT DRAINAGE, RECOVERED WITH XEROFORM AND OPTIFOAM WITH PLAN TO CHANGE AGAIN MWF. KEEPING KOSHER BY EATING FOOD FROM HOME AND USING HIS OWN MICROWAVE. APPRECIATES HOT TEA AND HOT COFFEE. DID DRINK AN ENSURE THIS EVENING. TOLERATING PILLS WITH WATER, HAVE REQUESTED PHARMACY TO CHANGE HIS LIQUID COLACE AND LIQUID RISPERIDAL TO TABLETS SINCE HE CAN SWALLOW WITH WATER. UP MODIFIED INDEPENDENT IN ROOM
[2020-01-13 06:52] LABS: ABSOLUTE NEUTROPHILS 4.3 thou/uL (1.4-8.2); BASOPHILS 0.8 % (0.0-2.0); EOSINOPHILS 5.7 % (0.0-3.0); HEMATOCRIT 28.2 % (42.0-52.0); HEMOGLOBIN 9.6 gm/dL (14.0-18.0); LYMPHOCYTES 24.6 % (24.0-44.0); MCH 29.7 pg (26.0-34.0); MCV 87.5 fL (80.0-100.0); MONOCYTES 5.2 % (1.0-8.0); PLATELET COUNT 253 thou/uL (150-400); POLYS 63.7 % (36.0-66.0); RBC 3.23 mil/uL (4.50-6.00); RDW 16.1 % (10.5-14.5); WBC 6.7 thou/uL (4.0-11.0)
[2020-01-13 07:12] LABS: MAGNESIUM 1.6 mg/dL (1.8-2.4); POTASSIUM 3.5 mmol/L (3.5-5.1)
[2020-01-13 08:00] VITALS: BP 124/79
--- NOTE | 2020-01-13 12:41 | NUR ---
ASSUMED CARE AT 0700. PT HAD AN UNEVENTFUL NIGHT AND SLEPT FAIRLY GOOD. DENIES ANY PAIN. PT IS MOD I IN THE ROOM, GAIT IS STEADY. PT IS ON A STRICT KOSHER DIET. PARTICIPATING WITH THERAPY. PROGRESING TOWARDS GOAL. TRACH REMOVED AND PT DENIES ANY COMPLAINS OF DIFFICULTY BREATHING. DRESSING TO TRACH SITE AND SACRAL WOUND DONE. WILL CONT TO MONITOR.
--- NOTE | 2020-01-13 13:20 | NUR ---
cm notified by [employer] and [facility] nurse admitting supervisor that yoab was made MOD I in room and ready for dc on thursday.
--- NOTE | 2020-01-13 17:21 | NUR ---
FAXED REFERRAL TO [facility] HH SPOKE WITH JONNY IN INTAKE AND THEY CAN ACCEPT DR. LI TO FOLLOW FOR HH. RIDER ON THURSDAY THEY WILL DO A COUPLE NURSING CANDIDO VISITS.
[2020-01-13 19:18] VITALS: BP 105/69
--- NOTE | 2020-01-14 01:47 | NUR ---
Patient is alert and oriented x4 and is able to make needs known to staff. He was very pleasant and interacted with staff during and after shift change, refused having any pain, nausea or vomiting. He was compliant with all night medications after wich he requested some tea, before going to and staying in his bed resting and breathing visibly and normally with no signs of distress.
[2020-01-14 07:13] VITALS: BP 109/73
--- NOTE | 2020-01-14 10:57 | NUR ---
ASSUMED CARE AT 0700. PT HAD AN UNEVENTFUL NIGHT AND SLEPT WELL. DENIES ANY PAIN. AMBULATORY IN THE ROOM. NO COMPLAINS OF SHORT OF AIR. ON ROOM AIR. DRESSING TO THE NECK AND SACRAL WOUND DONE. INCISION SITE TO NECK INTACT AND NO SIGN OF INFLAMMATION. PARTICIPATING IN THERAPY. NO OTHER CONCERNS. CONT TO MONITOR.
[2020-01-14 19:20] VITALS: BP 104/69
--- NOTE | 2020-01-15 04:59 | NUR ---
Patient is alert and oriented x4, pleasnt with staff and peers and is able to make needs known when necessary. He was compliant with all his night mediaction and denies any pain. Patient vitals were within expected normal range/baseline. He is currently in his room, resting in bed and breathing normally with no signs of distress.
[2020-01-15 08:18] VITALS: BP 113/76
--- NOTE | 2020-01-15 10:21 | NUR ---
ASSUMED CARE AT 0700. PATIENT IS ALERT AND ORIENTED X4. PATIENT KING'S, HANDS ASSEMBLER ARE EQUAL. LUNGS ARE CLEAR. TRACH IS OUT AND COVERED WITH DRESSING. ABD IS SOFT WITH BSX4. UP TO THE BATHROOM TO VOID SAKSHI COLORED URINE. PATIENT IS MOD/I IN THE ROOM. PATIENT ONLY EATS KOSHER FOODS R/T HIS ANABAPTIST. FALL AND SAFETY PROTOCOLS IN PLACE. DENIES PAIN. CONTINUES TO PROGRESS TOWARDS D/C GOALS. PATIENT HAS PEG TUBE IN PLACE. FLUSHED WITH 50CC Q 6 HOURS. WILL CONTINUE TO MONITER.
[2020-01-15 19:20] VITALS: BP 113/76
[2020-01-16 07:09] VITALS: BP 109/74
--- NOTE | 2020-01-16 12:46 | NUR ---
ASSUMED CARE AT 0700. PT HAD AN UNEVENTFUL NIGHT AND SLEPT WELL. DENIES ANY PAIN. PT IS AMBULATORY IN THE ROOM AND HALLWAY. PARTICIPATING WITH THERAPY AND PROGRESSING TOWARDS GOAL. PLAN FOR DISCHARGE TOMORROW. INCISION SITE TO NECK DONE AND DRESSING TO SACRAL SITE CHANGED. NO OTHER CONCERNS. WILL CONT TO MONITOR.
[2020-01-16 14:08] VITALS: BP 109/74
[2020-01-16] MEDS ORDERED: METOPROLOL TART25 MG PO (16:18)
[2020-01-16] MEDS ORDERED: CLOPIDOGREL75 MG PO (16:18)
[2020-01-16] MEDS ORDERED: LIPITOR40 MG PO (16:18)
[2020-01-16] MEDS ORDERED: TORSEMIDE20 MG PO (16:18)
[2020-01-16] MEDS ORDERED: SPIRONOLACTONE25 M1 PO (16:18)
[2020-01-16 19:45] VITALS: BP 115/74
--- NOTE | 2020-01-17 04:06 | NUR ---
ASSESMENT: PT REMAIN ALERT AND ORIENT TIMES THREE. UP AD SAMREEN IN CORRIDOR AND ROOM. DENIES PAIN. PEG TUBE INTACT, FLUSHED WITH 50 CC OF H20. POSSIBLE DC TO HOME TODAY. GOOD PROGRESS TOWARDS DC GOALS. WILL CONTINUE TO MONITOR.
[2020-01-17 06:01] LABS: ABSOLUTE NEUTROPHILS 4.5 thou/uL (1.4-8.2); BASOPHILS 0.7 % (0.0-2.0); EOSINOPHILS 7.4 % (0.0-3.0); HEMATOCRIT 29.5 % (42.0-52.0); HEMOGLOBIN 9.7 gm/dL (14.0-18.0); LYMPHOCYTES 29.7 % (24.0-44.0); MCH 28.7 pg (26.0-34.0); MCHC 32.7 g/dL (28.0-37.0); MCV 87.8 fL (80.0-100.0); MONOCYTES 5.4 % (1.0-8.0); PLATELET COUNT 251 thou/uL (150-400); POLYS 56.8 % (36.0-66.0); RBC 3.36 mil/uL (4.50-6.00); RDW 16.4 % (10.5-14.5); WBC 7.9 thou/uL (4.0-11.0)
[2020-01-17 06:22] LABS: CALCIUM 8.6 mg/dL (8.5-10.1); CREATININE 0.8 mg/dL (0.7-1.3); MAGNESIUM 1.7 mg/dL (1.8-2.4); POTASSIUM 3.5 mmol/L (3.5-5.1)
[2020-01-17 07:16] VITALS: BP 113/77
--- NOTE | 2020-01-17 08:12 | NUR ---
0700 ASSUMED CARE OF PATIENT, PATIENT SITTING UP IN CHAIR WATCHING TV. 0750 PATIENT CONTINUES TO WATCH TV. NO C/O PAIN, BS ACTIVE, LS CLEAR. VS- BP 113/77 P- 96 RESP- 20 TEMP- 97.7 O2 SATS 100%. PATIENT STATES READY TO GO HOME.
[2020-01-17] MEDS ORDERED: BAYER CHEWABLE81 MG PO ×2 (09:38→11:18)
--- NOTE | 2020-01-17 10:23 | NUR ---
WOUND CARE NOTE; R BUTTOCK WOUND HEALING, SCANT SLOUGH IN CENTER OF WOUND, NO S/S INFECTION, THERAHONEY AND BORDER FOAM DRSGS AND XEROFORM IN ROOM, [facility] DRSG OVER OLD TRACH SITE CAME OFF YESTERDAY, OPEN TO AIR. DIRECTOR OF ACCOUNTING TO VERIFY W/ DR SWANN WOUND CARE OF TRACH AND WHEN SUTURES NEED TO BE REMOVED, POSSIBLE DC TODAY, ALERT AND COOPERATIVE, INSTRUCTED ON WOUND CARE AND STATES FAMILY MEMBERS ABLE TO HELP PRN RECOMMENDATIONS; BORDER FOAM TO BUTTOCK WOUND, SURGEON TO ORDER WOUND CARE AND SUTURE REMOVAL TRACH AREA DIRECTOR OF ACCOUNTING AWARE
[2020-01-17] MEDS ORDERED: METOPROLOL TART25 MG PO (11:18)
[2020-01-17] MEDS ORDERED: LIPITOR40 MG PO (11:18)
[2020-01-17] MEDS ORDERED: TORSEMIDE20 MG PO (11:18)
[2020-01-17] MEDS ORDERED: SPIRONOLACTONE25 M1 PO (11:18)
[2020-01-17] MEDS ORDERED: CLOPIDOGREL75 MG PO (11:18)
--- NOTE | 2020-01-17 13:50 | NUR ---
cm team provided yoab and his brother list of commerial insurance. bedside nurse to teach on trach and peg site. team meeting, pt not wanting to go home untile tomorrow per bedside nurse rt no electric on in appartment. he is moving from 1 place to another per yoab. he is independent with all adl's. independent with pills and bills, on reqular diet. or today or tomorrow. nurse bruno visit at or
--- NOTE | 2020-01-17 18:07 | NUR ---
PATIENT AMB IN [place] WITH A STEADY GAIT. PATIENT NOTED ON PHONE IN AM TALKING WITH FAMILY REGARDING DISCHARGE. GAMALIEL IN ROOM SPEAKING WITH PATIENT REGARDING MEDICATION. PATIENT STATES TO TECHNICAL MARKETING CONSULTANT "BROTHER POSSIBLY PICKING ME UP". 1215 TECHNICAL MARKETING CONSULTANT TO ROOM PATIENT DENIES NEEDS. TECHNICAL MARKETING CONSULTANT ASKS ABOUT A TIME OF DISCHARGE AND BROTHER PICKING HIM UP. PATIENT STATES "I WILL NOT GO TODAY, I WILL GO HOME TOMORROW", I HAVE NO ELECTRICITY BECAUSE I AM MOVING FROM ONE PLACE TO ANOTHER". pATIENT EXPLAINS HE HAS NO WHERE TO GO TODAY. [facility] SITE IS CLEAN, DRY AND OPEN TO AIR. PATIENT DENIES PAIN.
--- NOTE | 2020-01-17 19:50 | NUR ---
PT VERIFYING THAT I WOULD BE GIVING HIS HS MEDS BERTO
[2020-01-17 19:58] VITALS: BP 111/74
--- NOTE | 2020-01-18 04:00 | NUR ---
UP INDEPENDENTLY IN ROOM WITH STEADY GAIT. TRACH SITE IS CDI AND OPEN TO AIR. TAKING PILLS WHOLE WITH WATER AND IS AWARE THEY ARE DUE AT 2100 EVEN IF THEY ARE A LITTLE BIT LATER THIS SHIFT DUE TO STAFF BEING BUSY WITH OTHERS
[2020-01-18 08:00] VITALS: BP 107/73
--- NOTE | 2020-01-18 09:00 | NUR ---
cm notified that he reporting not going to be able to afford his medication. ok per cm planting supervisor to vouch for medication. [facility] outpt rx called [facility] for 6 rx $ 57.27. ang spoke with [facility] nurse planting supervisor that meds are ready for picker packer, either bedside staff picker packer for him or yoab can pick medication before dc home today. [facility]son doug will see for [facility]. trying to get him appointment with [facility]. pt brother still saying his house was in not livable. per raquel he was doing remolding prior to hospital. will cont following as needed for dc needs.
--- NOTE | 2020-01-18 10:22 | NUR ---
ON 01/18/2020 AT 8:58 AM FROM WIRELESS CALLER [phone] MALLY PENG CALLED ME TO DISCUSS HIS BROTHER TRYING TO ACT ON HIS BEHALF. PATIENT STATED HE CAN ANSWER AND SIGN HIS OWN QUESTIONS AND DOCUMENTS. HE STATED HIS BROTHER CAN BE UPDATED BY HIMDELF AND NOT BY OTHERS. HE STATED HE WANTS TO CONTINUE WITH THE MEDICAID PROCESS. PATIENT STATED HIS BROTHER QUOTED TO SOMEONE ON REHAB THAT HIS HOME WAS UNINHABITABLE. PATIENT DISCUSSED WITH ME HE WAS IN THE PROCESS OF REDOING HIS HOME WHEN HE GOT SERIOUSLY ILL. THE HOUSE IS IN [place] NOT CONDEMNED. HE STATED HE A FRIEND HAS A PLACE HE CAN GO IF THE PEOPLE HAS MOVED OUT TIL HIS HOME IS COMPLETED. IRA STATED WE COULD VOUCHE FOR HIS MEDS THIS DAY WHEN DISCHARGED. I WILL CALL AND MAKE APPOINTMENT FOR PATIENT AT [facility]. PATIENT WILL CALL WEEKELY TO CHECK IN AND ADVISE OF HIS PROGRESS. I WILL STAY IN TOUCH WITH PATIENT IN THE PROCESS AND PROGRESS OF HIS MEDICAID. THE PATIENT SIGNED APPOINTMENT OF FAST FOOD SHIFT SUPERVISOR FORM SO WE MAY KEEP TRACK OF THE PROGRESS IN THE MEDICAID PENDING TREVOR AND MAKE HIS APPOINTMENT.
[2020-01-18] MEDS ORDERED: CLOPIDOGREL75 MG PO (11:03)
[2020-01-18] MEDS ORDERED: METOPROLOL TART25 MG PO (11:03)
[2020-01-18] MEDS ORDERED: BAYER CHEWABLE81 MG PO (11:03)
[2020-01-18] MEDS ORDERED: TORSEMIDE20 MG PO (11:03)
[2020-01-18] MEDS ORDERED: SPIRONOLACTONE25 M1 PO (11:03)
[2020-01-18] MEDS ORDERED: LIPITOR40 MG PO (11:03)
[2020-01-18 11:59] VITALS: BP 109/74
--- NOTE | 2020-01-18 12:36 | NUR ---
Nutrition: Pt request to see RD prior to D/C today. Heart healthy carb controlled diet already reviewed on 01/09. No BG being taken on rehab unit. RD answered pt specific questions and reviewed dietary guidelines taking into consideration kosher diet pt follows. Pt already making healthy choices at home. Expect compliance.
--- NOTE | 2020-01-18 15:48 | NUR ---
PT DISCHARGING TODAY TO HOME WITH [facility] HH FAXED DC ORDERS/SUMMARY SPOKE WITH CECILIA IN INTAKE SHE RECEIVED ORDERS AND WILL CALL PT TO ARRANGE A COUPLE CANDIDO VISITS.
--- NOTE | 2020-01-18 19:22 | NUR ---
ASSUMED CARE OF PT AT 0700. PT IS A&OX4 AND VITAL SIGNS ARE STABLE. PT DENIES PAIN. ORDERS FOR D/C TODAY. MEDICATIONS RECEIVED FROM PHARMACY FOR DISCHAGE. REVIEWED D/C ORDERS, MEDICATIONS, F/U APPOINTMENTS, WOUND CARE, AND INSTRUCTIONS AT 1445. PT IMFORMED NURSING THAT BROTHER WAS ON HIS WAY TO PACKAGING LINE ATTENDANT PT. PT ON UNIT AT SHIFT CHANGE. STATES BROTHER IS ON HIS WAY WITH UNKNOWN TIME OF ARRIVAL. INSTRUCTED PT BROTHER TO ENTER AT ED AND HAVE STAFF CALL UNIT AND NURSING WILL ASSIST PT TO ED FOR DISCHARGE. FALL PRECAUTIONS IN PLACE AND NURSING WILL CONTINUE TO MONITOR.
--- NOTE | 2020-01-18 19:54 | NUR ---
Pateint was scheduled to discharge since yesterday. His brother has arrived to pich him up and patient will be transported with belongings to ER entrance where he will meet with his brother. His discharge vitals were as follows BP:111/71, P: 98, Oxygen Sat.: 99% Room Air, Resp.: 16 and Temp.: 98.3F.
--- NOTE | 2020-01-20 14:53 | H ---
[facility] [place] [address] HISTORY AND PHYSICAL Name: MALLY CURIEL Room #: 501-A [facility] [place] ..#: [id number] Admission: 01/10/20 Attend Phys: Mode Spivey MD Discharge: 01/18/20 Date of : 55 Report #: [id number] THIS REPORT FOR: cc: SHANDRA - No family physician/PCP FAM - No family physician/PCP Mode Spivey MD ~ CC: Mode DEVI physician/PCP DATE OF SERVICE: 01/10/2020 HISTORY AND PHYSICAL/POST-ADMISSION PHYSICIAN EVALUATION HISTORY OF PRESENT ILLNESS: The patient is a 64-year-old male who was originally admitted to [facility] on 11/28/2019 with chest pain. He originally went to the petroleum laboratory technician for a non-ST elevation myocardial infarction with stents placed. He was intubated on 12/01/2019 for respiratory failure and unable to be weaned off the ventilator and on 12/16/2019, a trach and PEG tube replaced. He weaned off sedation, 12/26/2019 and was then placed on trach shield. CT on 12/12/2019 showed possible right lower lobe pneumonia. He was treated on antibiotics and Solu-Medrol IV. Multiple consultants were involved. He continues with the PEG tube and trach in place, which is capped and now has been transferred for acute in-hospital inpatient rehabilitation. PAST MEDICAL HISTORY: Prior medical history includes no specific issues per his history and physical. MEDICATIONS: He was on no home medications prior to admission. MEDICATIONS: Please see his current medication list. ALLERGIES: No known drug allergies. SOCIAL HISTORY: Premorbidly living at home alone. He has 5 steps in, did not utilize any assistive device, was independent with ADLs and IADLs and brother was very involved and supportive. HABITS: No history of alcohol or tobacco abuse. REVIEW OF SYSTEMS: No complaints of chest pain, shortness of breath, or abdominal discomfort. PHYSICAL EXAMINATION: GENERAL: A 64-year-old L[employer] Day male in no obvious distress. He is pleasant and appropriate. VITAL SIGNS: Last recorded temperature 98.3, pulse 92, respirations 20, blood [facility] [address] [place] [address] HISTORY AND PHYSICAL Name: DANYMUNDOMALLY KAHN Room #: 501-A [facility]#: [id number] Admission: 01/10/20 Attend Phys: Mode Spivey MD Discharge: 01/18/20 Date of : 55 Report #: [id number] pressure 104/72. HEENT: Facies appeared symmetric. NEUROLOGIC: He is small statured and relatively thin. CHEST: He has some diffuse decreased breath sounds. CARDIOVASCULAR: Regular rate and rhythm. ABDOMEN: Bowel sounds positive, nontender. He has a trach in place. He has the PEG tube site, which appears benign. EXTREMITIES: Functional range of motion of both upper and lower extremities. I would grade his strength at a 4- to 3+/5. He is standby assist, sit to stand, min assist short distance ambulation with a front-wheeled walker. ASSESSMENT: 1. Critical illness myopathy improving. 2. Question of acute toxic encephalopathy. This appears to be improved as well. 3. Non-ST elevation myocardial infarction, status post stenting, 11/29/2019. 4. Hypoxic respiratory failure, status post trach with prolonged mechanical ventilation and PEG tube placement. 5. Severe ischemic cardiomyopathy with acute exacerbation of congestive heart failure, ejection fraction, 20-25%. 6. Klebsiella pneumoniae. 7. Hyperlipidemia. PLAN: The patient has been admitted for acute in-hospital inpatient rehabilitation. He will be involved in interdisciplinary acute inpatient rehabilitation program. The Goal is to maximize his functional independence. He can hopefully return back to his prior living situation. Pulmonary is involved and they are assisting regarding when he might be able to have the trach removed. He has the PEG tube in place, which needs to mature and we will defer future removal to Gastroenterology. He will be involved in the interdisciplinary acute inpatient rehabilitation program with a goal of maximizing his functional independence, so he can hopefully return back to his home level. He meets the medical necessity criteria and we will have the multiple consultants continue to follow. He meets the diagnostic criteria. He has tolerance for the acute rehabilitation level of care and he has appropriate discharge goals back to the home setting. <ELECTRONICALLY SIGNED> By: Mode Spivey MD 01/20/20 1453 [id number] Mode Spivey MD /nt
== END 2020-01-18 20:28 | disposition home health service (06) | DRG 91 ==
PROVIDERS: Nurse Practitioner; Nurse Practitioner Family; ADMIT Physical Medicine & Rehabilitation; ATTEND Physical Medicine & Rehabilitation
DX: G72.81 Critical illness myopathy (principal); J96.01 Acute respiratory failure with hypoxia; G92 Toxic encephalopathy; J15.0 Pneumonia due to Klebsiella pneumoniae; I50.23 Acute on chronic systolic (congestive) heart failure; R13.10 Dysphagia, unspecified; I25.5 Ischemic cardiomyopathy; D64.9 Anemia, unspecified; E78.5 Hyperlipidemia, unspecified; I25.10 Atherosclerotic heart disease of native coronary artery without angina pectoris; R31.9 Hematuria, unspecified; R53.81 Other malaise; E11.9 Type 2 diabetes mellitus without complications; F43.29 Adjustment disorder with other symptoms; R41.9 Unspecified symptoms and signs involving cognitive functions and awareness; I25.2 Old myocardial infarction; Z95.5 Presence of coronary angioplasty implant and graft; Z93.1 Gastrostomy status
CPT/HCPCS: 10112